=== PATIENT | female | born 1975 | race Two or more races ===

== ENCOUNTER 2020-10-24 17:18 | Outpatient (REF) | payer MEDICARE, MEDICAID, SELFPAY ==
--- NOTE | 2020-10-24 17:26 | XR_ITS ---
EXAMINATION: XR ELBOW, RIGHT CLINICAL INFORMATION: Pain COMPARISON: None TECHNIQUE: AP, lateral, and oblique views of the right elbow. FINDINGS: The bones and soft tissues are normal. No fracture or joint effusion. Alignment is anatomic. Joint spaces are maintained. XR/XR elbow RT 2V IMPRESSION: Normal right elbow.
== END 2020-10-24 17:19 | disposition home or self-care (01) ==
LOC: HO.XRAY 17:18
PROVIDERS: PCP Internal Medicine; Visit Provider Internal Medicine
DX: M25.521 Pain in right elbow (principal)
CPT/HCPCS: 73070

== ENCOUNTER → 2020-11-10 09:28 | Outpatient (BNVA) | payer MEDICARE, MEDICAID, SELFPAY | PROVIDERS: PCP Internal Medicine; Visit Provider Physician Assistant | DX: M77.11 Lateral epicondylitis, right elbow (principal) | CPT/HCPCS: 99202 ==

== ENCOUNTER 2020-12-29 13:48 | Outpatient (REF) | payer MEDICARE, MEDICAID, SELFPAY ==
--- NOTE | ~2020-12-29 | MM_ITS ---
EXAMINATION: MM DIAGNOSTIC DIGITAL BREAST TOMOSYNTHESIS, LEFT CLINICAL INFORMATION: Left breast calcifications The lifetime risk of breast cancer based on the Tyrer-Cuzick Model is 6.8%. COMPARISON: Mammography: 06/27/2020 TECHNIQUE: Digital breast tomosynthesis is performed in both the craniocaudal and mediolateral oblique views along with computer-aided detection (CAD). Synthesized 2D images are generated from the tomosynthesis. Additional spot magnification views in craniocaudal and 90 degree mediolateral views performed. FINDINGS: The breasts are extremely dense, which lowers the sensitivity of mammography (ACR BI-RADS breast composition Category d). There are no new significant masses, abnormal calcifications, or other abnormalities. Two groupings of probably benign calcifications are again seen, one superiorly and one inferiorly within the left breast. Six-month bilateral mammography suggested with magnification views of the left breast at that time. Results are provided to the patient at time of visit by the technologist. MM/MM tomosynthesis diagnostic LT IMPRESSION: There are no significant changes from prior study. ASSESSMENT: BI-RADS 3: Probably Benign RECOMMENDATION: Diagnostic mammography in 6 months. Spot magnification views of the left breast for calcifications. This patient's information was entered into a reminder system with a target due date for their next mammogram.
== END 2020-12-29 13:49 | disposition home or self-care (01) ==
LOC: HO.MAMMO 13:48
PROVIDERS: PCP Internal Medicine; Visit Provider Internal Medicine
DX: R92.1 Mammographic calcification found on diagnostic imaging of breast (principal)
CPT/HCPCS: 77061; 77065

== ENCOUNTER 2021-07-06 13:11 | Outpatient (REF) | payer MEDICARE, MEDICAID, SELFPAY ==
--- NOTE | ~2021-07-06 | MM_ITS ---
EXAMINATION: MM DIAGNOSTIC DIGITAL BREAST TOMOSYNTHESIS, BILATERAL CLINICAL INFORMATION: Due for yearly. Also follow-up probable benign groups left breast calcifications. The lifetime risk of breast cancer based on the Tyrer-Cuzick Model is 7%. COMPARISON: Mammography: 12/29/2020, 06/27/2020 (diagnostic, BI-RADS 3), ultrasound left breast 06/27/2020. TECHNIQUE: Digital breast tomosynthesis is performed in both the craniocaudal and mediolateral oblique views along with computer-aided detection (CAD). Synthesized 2D images are generated from the tomosynthesis. Additional magnification left CC and magnification left LM views are obtained. FINDINGS: The breasts are extremely dense, which lowers the sensitivity of mammography (ACR BI-RADS breast composition Category d). The breast parenchymal pattern is similar to prior studies. There is no developing density or interval mass or architectural abnormality. There is a stable circumscribed nodule posterior outer left breast similar to prior exams. There are a few scattered benign punctate calcifications in the right breast similar to prior studies. The bilateral axilla and skin contours are unremarkable. Left breast calcifications for follow-up appear stable from prior diagnostic studies. These include punctate retroareolar calcifications, benign grouped round calcifications mid 12:00 position, and relatively coarse grouped calcifications with possible layering central lower inner breast. There are also stable punctate calcifications posterior central left breast. Left breast calcifications will be reassessed again in 6 months. Results are provided to the patient at time of visit by the technologist. MM/MM tomosynthesis diagnostic BI IMPRESSION: 1. Left: Stable probable benign groups of calcifications. 2. Right: No mammographic evidence of malignancy. ASSESSMENT: BI-RADS 3: Probably Benign RECOMMENDATION: Diagnostic left mammography in 6 months. This patient's information was entered into a reminder system with a target due date for their next mammogram.
== END 2021-07-06 13:12 | disposition home or self-care (01) ==
LOC: HO.MAMMO 13:11
PROVIDERS: PCP Internal Medicine; Visit Provider Internal Medicine
DX: R92.1 Mammographic calcification found on diagnostic imaging of breast (principal)
CPT/HCPCS: 77062; 77066

== ENCOUNTER 2021-09-27 14:02 | Outpatient (REF) | payer MEDICARE, MEDICAID, SELFPAY ==
[2021-09-28 14:07] LABS: CT PCR NOT DETECTED (Not Detect.); NG PCR NOT DETECTED (Not Detect.)
[2021-09-29 14:53] LABS: BV Int Neg Control Negative (Negative); BV Int Pos Control Positive (Positive)
[2021-10-01 22:07] LABS: HPV mRNA E6/E7 rflx Not Detected (Not Detected)
== END 2021-09-27 14:03 | disposition home or self-care (01) ==
LOC: HO.LAB 14:02
PROVIDERS: PCP Internal Medicine; Visit Provider Advanced Practice Midwife
DX: Z01.419 Encounter for gynecological examination (general) (routine) without abnormal findings (principal); Z11.51 Encounter for screening for human papillomavirus (HPV); Z20.2 Contact with and (suspected) exposure to infections with a predominantly sexual mode of transmission
CPT/HCPCS: 87480; 87491; 87510; 87591; 87624; 87660; 88142

== ENCOUNTER 2021-09-28 11:35 | Outpatient (REF) | payer MEDICARE, MEDICAID, SELFPAY | END 2021-09-28 11:36 | disposition home or self-care (01) | LOC: HO.LNP 11:35 | PROVIDERS: Visit Provider Advanced Practice Midwife | DX: Z13.89 Encounter for screening for other disorder (principal) ==

== ENCOUNTER 2021-10-31 15:05 | Outpatient (REF) | payer MEDICARE, MEDICAID, SELFPAY ==
[2021-10-31 16:02] LABS: COVID-19 Test Positive (Negative)
== END 2021-10-31 15:06 | disposition home or self-care (01) ==
LOC: HO.LAB 15:05
PROVIDERS: Visit Provider Internal Medicine
DX: Z20.822 Contact with and (suspected) exposure to COVID-19 (principal)
CPT/HCPCS: 87635; C9803

== ENCOUNTER 2021-11-14 13:24 | Outpatient (REF) | payer MEDICARE, MEDICAID, SELFPAY ==
[2021-11-14 13:48] LABS: Binax Internal Control QC Valid; Binax Now Covid-19 Ag Negative (Negative)
== END 2021-11-14 13:25 | disposition home or self-care (01) ==
LOC: HO.LAB 13:24
PROVIDERS: Visit Provider Internal Medicine
DX: Z20.822 Contact with and (suspected) exposure to COVID-19 (principal)
CPT/HCPCS: C9803

== ENCOUNTER 2021-12-24 10:09 | Outpatient (REF) | payer MEDICARE, MEDICAID, SELFPAY ==
[2021-12-24 10:58] LABS: Hematocrit 36.5 % (37.0-47.0); Hemoglobin 11.9 g/dl (12.0-16.0); Mean Corpuscular HGB Conc 32.6 g/dl (31.0-35.0); Mean Platelet Volume 12.4 fL (9.4-12.3); Platelet Count 327 X10*3/uL (160-400); Red Cell Distribution Width 12.7 % (11.0-16.0); White Blood Count 5.6 X10*3/uL (4.8-10.8)
[2021-12-24 11:25] LABS: Anion Gap 11 (12-20); Blood Urea Nitrogen 8 mg/dL (9-16); Calcium 9.6 mg/dL (8.4-10.2); Carbon Dioxide 28 mmol/L (22-29); Chloride 105 mmol/L (96-108); Cholesterol 179 mg/dL; Estimated Glomerular Filt Rate > 60; Glucose Fasting 92 mg/dL (60-99); HDL Cholesterol 44 mg/dL; LDL Cholesterol Calculated 112 mg/dl; Potassium 4.7 mmol/L (3.3-5.1); Sodium 139 mmol/L (135-145); Triglycerides 116 mg/dL
== END 2021-12-24 10:10 | disposition home or self-care (01) ==
LOC: HO.LAB 10:09
PROVIDERS: Absent Provider Internal Medicine; PCP Internal Medicine; Visit Provider Nurse Practitioner Family
DX: Z00.00 Encounter for general adult medical examination without abnormal findings (principal); Z13.1 Encounter for screening for diabetes mellitus; E78.00 Pure hypercholesterolemia, unspecified
CPT/HCPCS: 36415; 80048; 80061; 85027

== ENCOUNTER 2022-01-03 12:51 | Outpatient (REF) | payer MEDICARE, MEDICAID, SELFPAY ==
--- NOTE | ~2022-01-03 | MM_ITS ---
EXAMINATION: MM DIAGNOSTIC DIGITAL BREAST TOMOSYNTHESIS, LEFT CLINICAL INFORMATION: Follow-up probable benign groups of calcifications left breast. No known family history breast cancer. The lifetime risk of breast cancer based on the Tyrer-Cuzick Model is 7%. COMPARISON: Mammography: 07/06/2021, 12/29/2020, 06/27/2020 (diagnostic, BI-RADS 3). TECHNIQUE: Digital breast tomosynthesis is performed in both the craniocaudal and mediolateral oblique views along with computer-aided detection (CAD). Synthesized 2D images are generated from the tomosynthesis. Additional magnification CC and magnification ML x2 views are obtained. FINDINGS: The breasts are heterogeneously dense, which may obscure small masses (ACR BI-RADS breast composition Category c). Breast tissue composition borders on extremely dense. The parenchymal pattern is similar to prior studies. There is a intramammary node left breast upper outer quadrant similar to prior studies. The calcifications for follow-up are stable from prior diagnostic exams. There are no increasing calcifications or interval pleomorphic types or ductal distribution. Calcifications will be reassessed again at next bilateral annual mammography in 6 months to conclude long-term surveillance. Results are provided to the patient at time of visit by the technologist. MM/MM tomosynthesis diagnostic LT IMPRESSION: There are no significant changes from prior exams. Left breast calcifications for follow-up stable. ASSESSMENT: BI-RADS 3: Probably Benign RECOMMENDATION: Diagnostic mammography at time of annual bilateral exam, due in 6 months. This patient's information was entered into a reminder system with a target due date for their next mammogram.
== END 2022-01-03 12:52 | disposition home or self-care (01) ==
LOC: HO.MAMMO 12:51
PROVIDERS: PCP Internal Medicine; Visit Provider Internal Medicine
DX: R92.1 Mammographic calcification found on diagnostic imaging of breast (principal)
CPT/HCPCS: 77061; 77065

== ENCOUNTER → 2022-05-10 13:13 | Outpatient (REF) | payer MEDICARE, MEDICAID, SELFPAY ==
--- NOTE | 2022-05-10 13:15 | ECG_ITS ---
Hook-up date: 2022-05-10 12:37:00 Duration: 47:59:00 Test Indications: PALPITATIONS Medications: [id number] QRS complexes 5 Ventricular ectopics which represent <1 % of total QRS comp. 62 Supraventricular ectopics which represent <1 % of total QRS comp. * Paced QRS complexs which represent % of total QRS comp. VENTRICULAR ECTOPY 5 Isolated 0 Bigeminal Cycles 0 Couplets 0 Runs 0 Beats in Runs * Beats LONGEST at * BPM at :: -- * Beats FASTEST at * BPM at :: -- SUPRAVENTRICULAR ECTOPY 45 Isolated 4 Couplets 2 Runs 9 Beats in Runs 6 Beats LONGEST at 80 BPM at 21:30:50 2022-05-11 3 Beats FASTEST at 98 BPM at 06:10:18 2022-05-11 HEART RATES 43 MIN at 01:05:19 2022-05-11 69 AVG 123 MAX at 10:48:27 2022-05-11 LONGEST RR 1.5120 secs at 01:05:19 2022-05-11 S-T LEVELS Channel 1 - 128 mm at 12:37:00 2022-05-10 - 128 mm at 12:37:00 2022-05-10 Channel 2 - 128 mm at 12:37:00 2022-05-10 - 128 mm at 12:37:00 2022-05-10 Channel 3 - 128 mm at 03:15:61 -- - 128 mm at 03:15:61 Basic rhythm Normal sinus rhythm No long pause or profound bradycardia Rare Premature atrial complexes Patient reported symptoms correlated with NSR Referred By: Dinorah Hernandez Overread By: CLEMENTE DE LEON MD
== END | disposition home or self-care (01) ==
LOC: HO.CARD 13:13
PROVIDERS: PCP Internal Medicine; Visit Provider Internal Medicine
DX: R00.2 Palpitations (principal)
CPT/HCPCS: 93225; 93226

== ENCOUNTER → 2022-06-18 10:39 | Outpatient (BNVA) | payer MEDICARE, MEDICAID, SELFPAY | PROVIDERS: PCP Internal Medicine; Referring Provider Internal Medicine; Visit Provider Internal Medicine | DX: R00.2 Palpitations (principal) | CPT/HCPCS: 93005 ==

== ENCOUNTER → 2022-07-11 13:48 | Outpatient (REF) | payer MEDICARE, MEDICAID, SELFPAY ==
--- NOTE | 2022-07-11 13:53 | CA_ITS ---
Transthoracic Echocardiogram Patient (Last, First, Middle): Esme Velasquez, Gender: Female Date of : 1975 Age: 47 Procedure Date: 07/11/2022 Procedure Type: Transthoracic Echocardiogram Location: OP Height: 157.48 cm Weight: 63.5 kg BSA: 1.64 m2 Heart Rate: bpm BP: 110 / 70 mmHg Stone Finisher: TO Referring MD: Bib Maya MD Symptoms: R00.2 - Palpitations Study Quality: Adequate ECG Rhythm: Sinus Conclusions: - The left ventricular systolic function is normal. The calculated ejection fraction is 58% by biplane method. - No obvious valvular pathology seen on this study. Findings Left Ventricle Normal left ventricular cavity size. There is normal left ventricular wall thickness. The left ventricular systolic function is normal. The calculated ejection fraction is 58% by biplane method. There is no evidence of regional wall motion abnormalities. Diastolic function is normal for age. Right Ventricle Normal right ventricular cavity size and systolic function. Atria Both atria are normal in size. Aortic Valve There is a normal trileaflet aortic valve. There is no aortic valve stenosis. There is no aortic valve regurgitation. Mitral Valve The mitral valve appears normal. There is no mitral valve regurgitation. There is no mitral valve stenosis. Pulmonic Valve The pulmonic valve is likely normal. Tricuspid Valve There is trace tricuspid valve regurgitation. There is no evidence of pulmonary hypertension. Great Vessels The asc aorta is normal in size. Venous The inferior vena cava is normal in size and collapses greater than 50% with inspiration. Pericardium/Pleural There is no evidence of pericardial effusion. Prior Study Comparison No prior study available for comparison. Recommendations, Care & Conclusions No obvious valvular pathology seen on this study. Measurements 2D Linear Measurements IVSd: 0.90 0.6-0.9/0.6-1.0 cm LVIDd: 4.30 3.9-5.3/4.2-5.9 cm LVIDd Index: 2.62 2.4-3.2/2.2-3.1 cm/m2 LVIDs: 2.61 2.0-3.6 cm LVPWd: 0.69 0.7-1.1 cm LA Diam: 3.30 2.7-3.8/3.0-4.0 cm LAIDs Index: 2.01 1.5-2.3 cm/m2 LV Mass: 130.04 67-162/88-224 g LV Mass Index: 79.29 43-95/49-115 g/m2 LVOT Diam: 1.90 3.0+(-)1.3 cm 2D Systolic Function EF 4C: 55.90 >55% EF 2C: 59.20 >55% EF BiP: 58.10 >55% Mitral Valve MV Pk E: 0.61 MV PK A: 0.52 MV Decel Time: 228.00 E/A: 1.20 E'Lateral: 10.90 E'Medial: 8.59 E/E' Med: 7.10 E/E' Lat: 5.60 PHT: 67.00 MVA PHT: 3.28 Decel [place]: 2.69 Aortic Valve AoV Pk [place]: 1.16 AoV Mn [place]: 0.76 AoV VTI: 0.22 AoV Pk Grad: 5.00 Aov Mn Grad: 3.00 KARI Cont.VTI: 2.21 LVOT LVOT Pk [place]: 0.89 LVOT Mn [place]: 0.62 LVOT VTI: 0.17 LVOT Pk Grad: 3.00 LVOT Mn Grad: 2.00 LVOT Diam: 1.90 LVOT Area: 2.84 Diastolic Function MV Pk E: 0.61 MV Pk A: 0.52 E/A: 1.20 E'Medial: 8.59 E/E' Med: 7.10 E' Laterial: 10.90 E/E' Lat: 5.60 Right Ventricle TAPSE (mm): 20.00 TVS' [place]: 10.60 Tricuspid Valve RA Press: 3.00 Great Vessels Aorta Sinus of Valsalva: 2.68 2.0-3.5 cm Ao Asc: 2.60 2.1-3.4 cm Updated in Other Vendor System with Status of Final Bib Maya MD electronically signed on 07/12/2022 9:11:32 AM with status of Final
--- NOTE | 2022-07-11 13:53 | HM_ITS ---
Conclusion: 1. Patient was monitored for total period of 2 days and 23 hours 2. Baseline was normal sinus rhythm with average heart of 76 beats per minute 3. No significant bradycardia or pauses noted 4. Very rare ectopy noted 5. No patient reported events MTDD
== END ==
LOC: HO.CARD 13:48
PROVIDERS: PCP Internal Medicine; Visit Provider Internal Medicine
DX: R00.2 Palpitations (principal)
CPT/HCPCS: 93242; 93306

== ENCOUNTER 2022-07-16 12:58 | Outpatient (REF) | payer MEDICARE, MEDICAID, SELFPAY ==
--- NOTE | ~2022-07-16 | MM_ITS ---
EXAMINATION: MM DIAGNOSTIC DIGITAL BREAST TOMOSYNTHESIS, BILATERAL CLINICAL INFORMATION: Due for yearly. Also follow-up probable benign groups of calcifications left breast. No known family history breast cancer. TC score 7%. COMPARISON: Mammography: 01/03/2022, 07/06/2021, 12/29/2020, 06/27/2020 (diagnostic, BI-RADS 3). TECHNIQUE: Digital breast tomosynthesis is performed in both the craniocaudal and mediolateral oblique views along with computer-aided detection (CAD). Synthesized 2D images are generated from the tomosynthesis. Additional magnification views left breast are obtained in the CC and ML x2 projections. FINDINGS: The breasts are heterogeneously dense, which may obscure small masses (ACR BI-RADS breast composition Category c). Breast tissue composition borders on extremely dense. The parenchymal pattern is similar to prior studies and there is no interval mass or architectural abnormality or developing density. Right breast shows no abnormal calcifications. The bilateral axilla and skin contours are unremarkable. Left breast calcifications for follow-up central lower, mid 12:00, and superior subareolar are similar to prior diagnostic studies. There are no increasing calcifications, interval pleomorphic types, or ductal distribution. This concludes long-term surveillance in the calcifications are now considered to be benign. Results are provided to the patient at time of visit by the technologist. MM/MM tomosynthesis diagnostic BI IMPRESSION: -No significant changes from prior studies. -The left breast calcifications for follow-up are stable from prior diagnostic exams and now considered to be benign. ASSESSMENT: BI-RADS 2: Benign RECOMMENDATION: Routine annual mammography screening. This patient's information was entered into a reminder system with a target due date for their next mammogram.
== END 2022-07-16 12:59 | disposition home or self-care (01) ==
LOC: HO.MAMMO 12:58
PROVIDERS: PCP Internal Medicine; Visit Provider Internal Medicine
DX: R92.1 Mammographic calcification found on diagnostic imaging of breast (principal)
CPT/HCPCS: 77062; 77066

== ENCOUNTER 2022-09-10 08:37 | Outpatient (REF) | payer MEDICARE, MEDICAID, SELFPAY ==
[2022-09-10 09:13] LABS: Hematocrit 35.2 % (37.0-47.0); Hemoglobin 11.7 g/dl (12.0-16.0); Mean Corpuscular HGB Conc 33.2 g/dl (31.0-35.0); Mean Corpuscular Hemoglobin 29.2 pg (27.0-33.0); Mean Corpuscular Volume 87.8 fL (80.0-98.0); Mean Platelet Volume 12.9 fL (9.4-12.3); Platelet Count 278 X10*3/uL (160-400); Red Blood Count 4.01 X10*6/uL (4.20-5.50); Red Cell Distribution Width 12.9 % (11.0-16.0); White Blood Count 5.7 X10*3/uL (4.8-10.8)
[2022-09-10 09:16] LABS: INTERNATIONAL NORM RATIO 1.2 (0.9-1.1); Prothrombin Time 13.5 SEC (10.0-13.1)
[2022-09-10 09:18] LABS: Partial Thromboplastin Time 35.6 SEC (26.0-36.4)
[2022-09-10 10:11] LABS: Alanine Aminotransferase 7 U/L (0-31); Albumin Level 4.1 g/dL (3.5-5.0); Alkaline Phosphatase 59 U/L (39-117); Anion Gap 13 (12-20); Aspartate Amino Transferase 15 U/L (5-31); Bilirubin Total 0.4 mg/dL (0.0-1.0); Blood Urea Nitrogen 11 mg/dL (9-16); Carbon Dioxide 23 mmol/L (22-29); Chloride 107 mmol/L (96-108); Estimated Glomerular Filt Rate > 60; Glucose Fasting 107 mg/dL (60-99); HCG Quantitative < 2 mIU/mL; Potassium 4.5 mmol/L (3.3-5.1); Sodium 138 mmol/L (135-145); Thyroid Stimulating Hormone 1.38 uIU/mL (0.32-4.0); Total Protein 6.9 g/dL (6.5-8.0)
[2022-09-10 10:47] LABS: HIV AB/AG Nonreactive (Nonreactive); HIV Num 1 0.06 S/CO (0.00-0.99)
== END 2022-09-10 08:38 | disposition home or self-care (01) ==
LOC: HO.LAB 08:37
PROVIDERS: PCP Internal Medicine; Visit Provider Internal Medicine
DX: Z01.818 Encounter for other preprocedural examination (principal); Z11.4 Encounter for screening for human immunodeficiency virus [HIV]
CPT/HCPCS: 36415; 80053; 84443; 84702; 85027; 85610; 85730; 87389

== ENCOUNTER 2022-12-09 14:58 | Outpatient (REF) | payer OTHER, SELFPAY ==
[2022-12-09 15:09] LABS: MANUAL DIFF FLAG NO
[2022-12-09 15:33] LABS: Basophils Percent Auto 0.5 % (0-2); Eosinophils Absolute Auto 0.1 X10*3/uL (0.0-0.4); Eosinophils Percent Auto 1.2 % (0-4); Hematocrit 38.9 % (37.0-47.0); Hemoglobin 12.7 g/dl (12.0-16.0); Imm Gran Abs Auto 0.01 X10*3/uL (0.00-0.03); Imm Gran Pct Auto 0.1 % (0.0-0.4); Lymphocytes Absolute Auto 2.6 X10*3/uL (1.2-4.9); Lymphocytes Percent Auto 34.6 % (20-40); Mean Corpuscular HGB Conc 32.6 g/dl (31.0-35.0); Mean Corpuscular Hemoglobin 28.3 pg (27.0-33.0); Mean Corpuscular Volume 86.8 fL (80.0-98.0); Mean Platelet Volume 12.6 fL (9.4-12.3); Monocytes Absolute Auto 0.5 X10*3/uL (0.1-1.2); Monocytes Percent Auto 6.7 % (2-11); Neutrophils Absolute Auto 4.4 x10*3/uL (2.0-8.3); Neutrophils Percent Auto 56.9 % (45-73); Platelet Count 361 X10*3/uL (160-400); Red Blood Count 4.48 X10*6/uL (4.20-5.50); Red Cell Distribution Width 12.8 % (11.0-16.0); White Blood Count 7.6 X10*3/uL (4.8-10.8)
[2022-12-09 16:12] LABS: Alanine Aminotransferase 23 U/L (0-31); Albumin Level 4.4 g/dL (3.5-5.0); Alkaline Phosphatase 84 U/L (39-117); Anion Gap 13 (12-20); Aspartate Amino Transferase 26 U/L (5-31); Bilirubin Total 0.5 mg/dL (0.0-1.0); Blood Urea Nitrogen 8 mg/dL (9-16); Calcium 9.6 mg/dL (8.4-10.2); Carbon Dioxide 26 mmol/L (22-29); Chloride 103 mmol/L (96-108); Cholesterol 228 mg/dL; Estimated Glomerular Filt Rate > 60; Glucose Fasting 95 mg/dL (60-99); HDL Cholesterol 59 mg/dL; Iron 74 mcg/dL (30-160); LDL Cholesterol Calculated 149 mg/dl; Percent Iron Saturation 20 % (15-50); Potassium 4.4 mmol/L (3.3-5.1); Sodium 138 mmol/L (135-145); Total Iron Binding Capacity 362 mcg/dL (228-428); Total Protein 7.3 g/dL (6.5-8.0); Triglycerides 100 mg/dL; Unsaturated Iron Binding 288 ug/dL
[2022-12-09 16:27] LABS: Thyroid Stimulating Hormone 1.53 uIU/mL (0.32-4.0)
== END 2022-12-09 14:59 | disposition home or self-care (01) ==
LOC: HO.LAB 14:58
PROVIDERS: PCP Internal Medicine; Visit Provider Internal Medicine
DX: Z00.00 Encounter for general adult medical examination without abnormal findings (principal); R00.2 Palpitations; D64.9 Anemia, unspecified
CPT/HCPCS: 36415; 80053; 80061; 83540; 84443; 85025

== ENCOUNTER 2022-12-26 12:46 | Outpatient (REF) | payer OTHER, SELFPAY ==
--- NOTE | ~2022-12-26 | US_ITS ---
EXAMINATION: US SOFT TISSUE NECK CLINICAL INFORMATION: Enlarged lymph nodes. COMPARISON: None TECHNIQUE: Ultrasound of the neck soft tissues is performed with high- frequency deras-scale imaging and color Doppler. Particular attention is directed the left submandibular region and inferior to the left ear. FINDINGS: The cutaneous, subcutaneous, muscular and fascial planes are unremarkable. Within the left submandibular region, corresponding with a palpable finding, a 1.0 x 0.5 x 1.5 cm reniform lymph node is seen. Inferior to the left ear, corresponding with a palpable finding, a 0.6 x 0.3 x 0.4 cm reniform lymph node is seen. These lymph nodes both show good corticomedullary differentiation, vascular amairani and no focal cortical thickening. US/US soft tiss head and/or neck IMPRESSION: 2 upper left cervical lymph nodes are noted, as detailed. These correspond with palpable findings described. One of these within the left submandibular region is enlarged. Neither lymph node shows altered corticomedullary differentiation or focal cortical thickening. These are nonspecific and should be managed on a clinical basis. If of continued clinical concern, consider short-term follow-up ultrasound imaging in 3-6 months to ensure stability/regression.
== END 2022-12-26 12:47 | disposition home or self-care (01) ==
LOC: HO.US 12:46
PROVIDERS: PCP Internal Medicine; Visit Provider Internal Medicine
DX: R59.0 Localized enlarged lymph nodes (principal)
CPT/HCPCS: 76536

== ENCOUNTER 2023-01-20 13:57 | Outpatient (REF) | payer OTHER, SELFPAY ==
[2023-01-21 01:03] LABS: CT PCR NOT DETECTED (Not Detect.); NG PCR NOT DETECTED (Not Detect.)
[2023-01-21 09:28] LABS: BV Int Neg Control Negative (Negative); BV Int Pos Control Positive (Positive)
== END 2023-01-20 13:58 | disposition home or self-care (01) ==
LOC: HO.LNP 13:57
PROVIDERS: PCP Internal Medicine; Visit Provider Advanced Practice Midwife
DX: Z01.419 Encounter for gynecological examination (general) (routine) without abnormal findings (principal); R92.1 Mammographic calcification found on diagnostic imaging of breast; Z20.2 Contact with and (suspected) exposure to infections with a predominantly sexual mode of transmission; Z79.899 Other long term (current) drug therapy
CPT/HCPCS: 0353U; 87480; 87510; 87660

== ENCOUNTER → 2023-01-31 15:38 | Outpatient (BNVA) | payer OTHER, SELFPAY | PROVIDERS: PCP Internal Medicine; Visit Provider Internal Medicine | DX: Z13.89 Encounter for screening for other disorder (principal) ==

== ENCOUNTER 2023-05-13 15:36 | Outpatient (REF) | payer MEDICARE, SELFPAY ==
--- NOTE | ~2023-05-13 | US_ITS ---
EXAMINATION: US SOFT TISSUE HEAD/NECK CLINICAL INFORMATION: Localized enlarged lymph nodes. COMPARISON: Ultrasound soft tissue neck 12/26/2022. TECHNIQUE: Linear transducer grayscale and color Doppler examination of the left submandibular and parotid area. FINDINGS: Targeted ultrasound images were obtained by the learning development specialist of the areas of concern as indicated by the patient in the region of the left submandibular and parotid gland to evaluate previously seen nodes. Radiologist was not in attendance. Images were later provided for interpretation. A 1.0 x 0.5 x 1.2 cm reniform lymph node with echogenic hilum in the left submandibular region previously measured 1.0 x 0.5 x 1.5 cm. A 0.5 x 0.2 x 0.3 cm reniform lymph node with echogenic hilum inferior to the left ear previously measured 0.6 x 0.3 x 0.4 cm. Both lymph nodes again demonstrate good corticomedullary differentiation. US/US soft tiss head and/or neck IMPRESSION: Two (2) upper left cervical nodes are redemonstrated as detailed above. Decisions regarding further management should be based on the clinical exam. Recommend follow-up ultrasound in 3-6 months.
== END 2023-05-13 15:37 | disposition home or self-care (01) ==
LOC: HO.US 15:36
PROVIDERS: PCP Internal Medicine; Visit Provider Internal Medicine
DX: R59.0 Localized enlarged lymph nodes (principal)
CPT/HCPCS: 76536

== ENCOUNTER 2023-05-13 16:25 | Outpatient (AMB) | payer MEDICARE, SELFPAY ==
--- NOTE | 2023-05-13 16:56 | AM.OFFWIN_ITS ---
Intake Vital Signs 05/13/23 16:57 Height 5 ft 2 in BP 98/62 Blood Pressure Location Rt brachial Position Sitting Pulse 81 Pulse Source Pulse Oximeter Pulse Oximetry (%) 100 Oxygen Delivery Method Room Air Intake Visit Reasons: EST/lower stomach lump Intake Note: pt had lipo in Dec and she had a lump in the spot where the surgery was done and is not flat pt has some pain pt tried to have it messaged out Patient Tobacco Use Status: Never used Tobacco Allergies tramadol Adverse Reaction (Intermediate, Verified 05/21/23 14:12) Chest Pain Medication List - Last Reconciled 05/21/23 by Avinash Le MD brimonidine-timolol 0.2-0.5 % (Combigan) 1 drp ophthalmic (eye) BID bupropion HCl 100 mg PO BID dorzolamide 2% 1 drp ophthalmic (eye) BID escitalopram oxalate 20 mg PO DAILY Grab bar As directed [handheld shower As directed] netarsudil-latanoprost 0.02-0.005 % (Rocklatan) 1 drp ophthalmic (eye) QPM peg 3350-electrolytes 236-22.74-6.74 -5.86 gram (Golytely) 240 mL PO Q10M prednisolone acetate 1% 1 drp ophthalmic (eye) BID Shower Chair with sides trazodone 50 mg PO BEDTIME PRN HPI HPI Comments History of Present Illness Details 48-year-old female presents to the office for a sick visit. Her hus band is translating. Patient underwent liposuction surgery in [place] few months ago. She feels there is a lump in the suprapubic area. There is no pain or discomfort associated with it. Patient would like to have the area examined. [facility] Medical History Breast calcifications on mammogram MIGUEL (generalized anxiety disorder) Insomnia Lymphadenopathy Mild recurrent major depression Right elbow pain Skin lesion Surgical History H/O right breast biopsy History of bilateral tubal ligation History of cosmetic surgery History of eye surgery History of keratoplasty History of vitrectomy Hx of colonoscopy Family History Father Prostate cancer Colon polyp Mother Hypertension Mental health disorder Colon polyp Daughter No problems noted. Social History Housing: House Alcohol intake: never Patient Tobacco Use Status: Never used Tobacco e-Cigarette/Vaping Use: Never Used Second Hand Smoke Exposure: No service: No Current occupational status: unemployed Current occupation: Right Handed Cognitive needs: No Hearing needs: No Vision needs: Yes (Glasses) Female Reproductive History Menstrual Age of Menarche: 12 Physical Exam Vital Signs: Last Vital Signs Pulse 81 05/13/23 16:57 BP 98/62 05/13/23 16:57 Pulse Ox 100 05/13/23 16:57 Oxygen Delivery Method Room Air 05/13/23 16:57 Const General: cooperative and healthy appearing Nutritional Appearance: well nourished Orientation/consciousness: patient oriented x3 Limitations: no limitations HEENT Head: Yes normal to inspection Eyes General: appearance normal, both eyes and all related structures Neck Neck: Yes normal visual inspection Chest Chest palpation & inspection: normal palpation of entire chest wall Resp Effort & Inspection: normal respiratory effort GI Other: Abdomen: Lower: No visible lump. There is minimal stay diastasis of the recti sheath. No tenderness. Neuro General: patient oriented x3 Assessment & Plan Assessment & Plan (1) Diastasis recti: Code(s): M62.08 - Separation of muscle (nontraumatic), other site Plan: Reassurance. No intervention needed. Coding Level of Care Code Est Pt Level 3 (39075) Diagnoses Diastasis recti M62.08
[2023-05-13 16:57] VITALS: BP 98/62; PULSE 81; O2SAT 100
== END 2023-05-13 17:08 | disposition home or self-care (01) ==
LOC: HO.HMGWI 16:25
PROVIDERS: PCP Internal Medicine; Visit Provider Internal Medicine
DX: M62.08 Separation of muscle (nontraumatic), other site (principal)
CPT/HCPCS: 99213

== ENCOUNTER 2023-06-09 09:51 | Outpatient (AMB) | payer MEDICARE, SELFPAY ==
--- NOTE | 2023-06-09 09:57 | A.OFFVIS_ITS ---
Intake Vital Signs 06/09/23 10:06 Height 5 ft 2 in Weight 136 lb BMI 24.9 BP 112/57 L Blood Pressure Location Rt brachial Position Sitting Pulse 68 Intake Visit Reasons: Generalized enlarged lymph nodes Intake Note: This patient presents for an assessment for generalized general lymph nodes. Patient c/o; reports feeling lump on left posterior ear and left side of jaw line, denies pain, denies dysphagia. Recovery Specialist Required: Yes Recovery Specialist Language: Malian Information Interpreted: non-clinical & clinical Accompanied by: Self / Same As Patient Allergies tramadol Adverse Reaction (Intermediate, Verified 06/09/23 10:06) Chest Pain HPI HPI Comments History of Present Illness Details Patient presents for follow-up surveillance of left cervical adenopathy. She has had these lymph nodes were several months time. Patient has had 2 ultrasounds of the head neck to evaluate these which have benign architecture. Recommendation of most recent ultrasound is for six-month follow- up. Patient denies any fever, chills, night sweats, weight loss. She has no mass or adenopathy elsewhere. Chart was reviewed patient evaluated. [facility], [facility] Medical History Breast calcifications on mammogram MIGUEL (generalized anxiety disorder) Insomnia Lymphadenopathy Mild recurrent major depression Right elbow pain Skin lesion Surgical History H/O right breast biopsy History of bilateral tubal ligation History of cosmetic surgery History of eye surgery History of keratoplasty History of vitrectomy Hx of colonoscopy Family History Father Prostate cancer Colon polyp Mother Hypertension Mental health disorder Colon polyp Daughter No problems noted. Social History Housing: House Alcohol intake: never Patient Tobacco Use Status: Never used Tobacco e-Cigarette/Vaping Use: Never Used Second Hand Smoke Exposure: No service: No Current occupational status: unemployed Current occupation: Right Handed Cognitive needs: No Hearing needs: No Vision needs: Yes (Glasses) Female Reproductive History Menstrual Age of Menarche: 12 Physical Exam Vital Signs: Last Vital Signs Pulse 68 06/09/23 10:06 BP 112/57 L 06/09/23 10:06 BMI result Body Mass Index 24.9 HEENT Other: Patient has a small apex left cervical lymph node measuring proximal 1/2 cm in size and the 2nd 1 in the left submandibular area. No contralateral cervical, periclavicular, axillary or groin adenopathy appreciated. Assessment & Plan Assessment & Plan (1) Head and neck lymphadenopathy: Code(s): R59.1 - Generalized enlarged lymph nodes Plan: Current plan is continue conservative therapy. Patient will hav a follow-up sonogram of cervical area in 6 months time and will see me after that or p.r.n.. All questions were answered. Orders: Orders US soft tiss head and/or neck Today R59.1 - Generalized enlarged lymph nodes Coding Level of Care Code New Pt Level 3 (92152) Diagnoses Head and neck lymphadenopathy R59.1
[2023-06-09 10:06] VITALS: BP 112/57; PULSE 68; BMI 24.9
== END 2023-06-09 10:13 | disposition home or self-care (01) ==
PROVIDERS: PCP Internal Medicine; Referring Provider Internal Medicine; Visit Provider Surgery
DX: R59.1 Generalized enlarged lymph nodes (principal)
CPT/HCPCS: 99203

== ENCOUNTER → 2023-06-09 09:51 | Outpatient (BNVA) | payer MEDICARE, SELFPAY | PROVIDERS: PCP Internal Medicine; Referring Provider Internal Medicine; Visit Provider Surgery | DX: R59.1 Generalized enlarged lymph nodes (principal) | CPT/HCPCS: 99202 ==

== ENCOUNTER 2023-07-22 09:20 | Outpatient (REF) | payer OTHER, SELFPAY ==
--- NOTE | ~2023-07-22 | MM_ITS ---
EXAMINATION: MM SCREENING DIGITAL BREAST TOMOSYNTHESIS, BILATERAL CLINICAL INFORMATION: Screening. Asymptomatic. COMPARISON: Mammography: This study is compared with prior exams dating back to 2019. TECHNIQUE: Digital breast tomosynthesis is performed in both the craniocaudal and mediolateral oblique views along with computer-aided detection (CAD). Synthesized 2D images are generated from the tomosynthesis. FINDINGS: The breasts are extremely dense, which lowers the sensitivity of mammography (ACR BI-RADS breast composition Category d). There are no significant masses, abnormal calcifications, or other abnormalities. MM/MM tomosynthesis screening BI IMPRESSION: No mammographic evidence of malignancy. ASSESSMENT: BI-RADS BI-RADS 1 - Negative RECOMMENDATION: Routine annual mammography screening. 1 year F/U This examination should not preclude the clinical evaluation of a suspicious palpable abnormality. This patient's information was entered into a reminder system with a target due date for their next mammogram.
== END 2023-07-22 09:21 | disposition home or self-care (01) ==
LOC: HO.MAMMO 09:20
PROVIDERS: PCP Internal Medicine; Visit Provider Internal Medicine
DX: Z12.31 Encounter for screening mammogram for malignant neoplasm of breast (principal)
CPT/HCPCS: 77063; 77067

== ENCOUNTER → 2023-07-22 09:30 | Outpatient (BNV) | payer OTHER, SELFPAY | PROVIDERS: PCP Internal Medicine; Visit Provider Radiology Diagnostic Radiology | DX: Z12.31 Encounter for screening mammogram for malignant neoplasm of breast (principal) | CPT/HCPCS: 77063; 77067 ==

== ENCOUNTER 2023-08-11 08:02 | Outpatient (AMB) | payer OTHER, SELFPAY ==
[2023-08-11 08:07] VITALS: BP 112/52; PULSE 64; O2SAT 99; BMI 24.7
--- NOTE | 2023-08-11 08:07 | A.OFFPC_ITS ---
Vital Signs 3 08/11/23 08:07 Height 5 ft 2 in Weight 135 lb BMI 24.7 BP 112/52 L Blood Pressure Location Lt brachial Position Sitting Pulse 64 Pulse Source Pulse Oximeter Pulse Oximetry (%) 99 Oxygen Delivery Method Room Air Intake Visit Reasons: Lump on the bottom of belly button Allergies tramadol Adverse Reaction (Intermediate, Verified 08/11/23 08:13) Chest Pain Medication List - Last Reconciled 08/11/23 by Francisco Morris PA-C brimonidine-timolol 0.2-0.5 % (Combigan) 1 drp ophthalmic (eye) BID bupropion HCl 100 mg PO BID dorzolamide 2% 1 drp ophthalmic (eye) BID escitalopram oxalate 20 mg PO DAILY Grab bar As directed [handheld shower As directed] lorazepam 1 mg PO DAILY PRN netarsudil-latanoprost 0.02-0.005 % (Rocklatan) 1 drp ophthalmic (eye) QPM peg 3350-electrolytes 236-22.74-6.74 -5.86 gram (Golytely) 240 mL PO Q10M prednisolone acetate 1% 1 drp ophthalmic (eye) BID Shower Chair with sides trazodone 50 mg PO BEDTIME PRN Tobacco use date assessed: 12/09/22 Dental Screening Dental Screen Date: 08/11/23 Did you have a dental visit in the last 12 months?: Yes Did you have a dental problem in the last 6 months where you did not have access to dental care?: No Was dental information given to patient?: Patient has dentist HPI Lump on the bottom of belly button 2 HPI0 Details Patient is a 48-year-old female here today for problem visit. Patient is Pashto-speaking only thus used a remote motor vehicle parts interpreter. This is the 1st time I am meeting this 48-year-old female with a past medical history significant for depression. She reports she has noted a lump just underneath her umbilicus over the last 2 months. She reports there has been more pain in the area concern and has felt a palpable lump getting bigger. She has been urinating and defecating normally. [facility] Medical History Lymphadenopathy Breast calcifications on mammogram MIGUEL (generalized anxiety disorder) Insomnia Mild recurrent major depression Skin lesion Right elbow pain Surgical History History of vitrectomy Corneal transplant status History of eye surgery H/O right breast biopsy Hx of colonoscopy History of cosmetic surgery History of bilateral tubal ligation History of keratoplasty History of eye surgery H/O right breast biopsy History of vitrectomy Family History Father Prostate cancer Colon polyp Mother Hypertension Mental health disorder Colon polyp Daughter No problems noted. Father Prostate cancer Mother Hypertension Social History Housing: House Alcohol intake: never Patient Tobacco Use Status: Never used Tobacco e-Cigarette/Vaping Use: Never Used Second Hand Smoke Exposure: No service: No Current occupational status: unemployed Current occupation: Right Handed Cognitive needs: No Hearing needs: No Vision needs: Yes (Glasses) Female Reproductive History Menstrual Age of Menarche: 12 Questionnaire PHQ-9 Over the last 2 weeks, how often have you been bothered by any of the following problems? 1. Little interest or pleasure in doing things: not at all 2. Feeling down, depressed, or hopeless: not at all 3. Trouble falling or staying asleep, or sleeping too much: not at all 4. Feeling tired or having little energy: not at all 5. Poor appetite or overeating: not at all 6. Feeling bad about yourself - or that you are a failure or have let yourself or your family down: not at all 7. Trouble concentrating on things, such as reading the newspaper or watching television: not at all 8. Moving or speaking so slowly that other people could have noticed. Or the opposite - being so fidgety or restless that you have been moving around a lot more than usual: not at all 9. Thoughts that you would be better off or of hurting yourself in some way: not at all Total score: 0 Depression Screening Interpretation: Negative Depression Screening Done: Yes 62445 - PHQ-9 Billing: Yes Source: Developed by Drs. Jesus Isbell, Lolly Waters, Fernando Carter and colleagues, with an educational anel from [employer]. Thrive Questionnaire Date Thrive assessed: 12/09/22 AUDIT C Alcohol Use Questionnaire (AUDIT-C) 1. How often do you have a drink containing alcohol?: Never Total Score: 0 MIGUEL-7 AMB Questionnaire MIGUEL-7 Date MIGUEL - 7 assessed: 12/09/22 Source: Developed by Drs. Jesus Isbell, Lolly Waters, Fernando Carter and colleagues, with an educational anel from [employer]. Review of Systems Const Denies headache(s) Eyes Denies loss of vision ENT Denies vertigo, Denies dizziness, Denies headache(s) and Denies sore throat Card Denies chest pain, Denies leg edema and Denies lightheadedness Resp Denies cough, Denies hemoptysis and Denies wheezing GI Denies abdominal pain, Denies melena, Denies constipation, Denies diarrhea and Denies vomiting Denies urinary frequency, Denies dysuria and Denies urinary urgency Musc Denies arthralgias, Denies joint swelling, Denies numbness and Denies tingling Neuro Denies Abnormal speech present, Denies behavioral changes, Denies vertigo, Denies dizziness, Denies headache(s), Denies loss of vision, Denies memory loss, Denies numbness and Denies tingling Psych Denies anxiety, Denies behavioral changes, Denies depression, Denies memory loss and Denies panic attacks Jayy/Lymph Denies easy bleeding and Denies easy bruising Aller/Immun Denies wheezing Physical exam (Primary Care) Vital Signs: Last Vital Signs Pulse 64 08/11/23 08:07 BP 112/52 L 08/11/23 08:07 Pulse Ox 99 08/11/23 08:07 Oxygen Delivery Method Room Air 08/11/23 08:07 BMI result Body Mass Index 24.7 Tobacco/Smoking Status: Tobacco use Status Tobacco use date assessed 12/09/22 08/11/23 08:12 Patient Tobacco Use Status Never used Tobacco 08/11/23 08:12 e-Cigarette/Vaping Use Never Used 08/11/23 08:12 PHQ-9: PHQ-9 Score PHQ-9: Total score 0 08/11/23 08:21 Depression Screening Interpretation: Negative Thrive Assessment: Date of Thrive Assessment Date Thrive assessed 12/09/22 08/11/23 08:12 Const General: healthy appearing, no acute distress, alert and awake Nutritional Appearance: well nourished Orientation/consciousness: oriented to person, oriented to place and oriented to time HENMT Ears: TM's normal bilaterally General nose exam: Normal nasal mucous membranes and turbinates present Eyes Conjunctivae: conjunctivae normal Sclerae: sclerae normal Pupils: Equal, round and reactive pupils present Neck Neck: Yes no lymphadenopathy and Yes no JVD Thyroid: Thyroid normal Carotids: no bruits Resp Effort & Inspection: normal respiratory effort and not tachypneic Auscultation: no crackles, no rales, no rhonchi and no wheezes Cardio Rate: regular rate Rhythm: regular rhythm Heart sounds: no murmurs and normal S1 and S2 GI Palpation (GI): Soft to palpation, nontender, no hepatomegaly and no splenomegaly Auscultation: normal bowel sounds Abdomen image: 2 1. SMALL PALPABLE LUMP JUST UNDERNEATH UMBILICUS. Skin General skin exam: no rashes or lesions noted and dry skin Neuro General: oriented to person, oriented to place and oriented to time Cranial nerves: Yes Equal, round and reactive pupils present Speech: No Abnormal speech present Gait exam (Neuro): Normal gait present Motor exam (neuro): no tremor noted Extrem Right upper extremity: full ROM Left upper extremity: full ROM Right lower extremity: full ROM; no edema Left lower extremity: full ROM; no edema Psych Mental Status: mental status grossly normal Speech and movement: Normal speech and movement present Affect: normal affect Attitude: cooperative Thought process: Normal thought process present Assessment and Plan Assessment & Plan (1) Umbilical hernia: Code(s): K42.9 - Umbilical hernia without obstruction or gangrene Qualifiers: Obstruction and gangrene presence: with obstruction but without gangrene Qualified Code(s): K42.0 - Umbilical hernia with obstruction, without gangrene Plan: Patient's clinical presentation most concerning for a umbilical hernia. Will send for CT of abdomen and pelvis to confirm suspicions. Will refer to general surgeon for evaluation of possible surgical fix. Orders: Orders 2 CT abdomen pelvis w IV con Today K42.0 - Umbilical hernia with obstruction, without gangrene Referrals 2 General Surgery Referral K42.0 - Umbilical hernia with obstruction, without gangrene Coding Level of Care Code Est Pt Level 4 (29981) Diagnoses Umbilical hernia with obstruction, without gangrene K42.0 Obstruction and gangrene presence: with obstruction but without gangrene
== END 2023-08-11 08:26 | disposition home or self-care (01) ==
PROVIDERS: PCP Internal Medicine; Visit Provider Physician Assistant
DX: K42.0 Umbilical hernia with obstruction, without gangrene (principal)
CPT/HCPCS: 99214

== ENCOUNTER 2023-08-21 08:23 | Day surgery (SDC) | payer OTHER, SELFPAY ==
[2023-08-19 09:18] VITALS: BMI 24.7
--- NOTE | 2023-08-20 10:38 | HO.ANESPROP2 ---
Documented by User: Anay Toledo NP 08/20/23 10:45 HPI - Anesthesia Eval Consult details Narrative: 48yo F for Colonoscopy s/p corneal transplant s/p tubal PMFSH Active Problems Active Problems: All Active Problems (Updated 08/11/23 @ 08:21 by Francisco Morris PA-C) Umbilical hernia (Acute) Diastasis recti (Acute) Head and neck lymphadenopathy (Acute) Colon cancer screening (Acute) Submandibular lymphadenopathy (Acute) Family history of colonic polyps (Acute) Physical exam (Acute) Polyarthralgia (Acute) Pre-op evaluation (Acute) Palpitations (Acute) Anxiety and depression (Acute) Medicare annual wellness visit, initial (Acute) Cervical cancer screening (Acute) Well woman exam with routine gynecological exam (Acute) Lateral epicondylitis, right elbow (Acute) Lymphadenopathy (Acute) Breast calcifications on mammogram (Acute) MIGUEL (generalized anxiety disorder) (Acute) Insomnia (Acute) Mild recurrent major depression (Acute) Skin lesion (Acute) Right elbow pain (Acute) Past Medical History Medical History Lymphadenopathy Breast calcifications on mammogram MIGUEL (generalized anxiety disorder) Insomnia Mild recurrent major depression Skin lesion Right elbow pain Family History Family History Father Prostate cancer Colon polyp Mother Hypertension Mental health disorder Colon polyp Daughter No problems noted. Father Prostate cancer Mother Hypertension Surgical History Surgical History Corneal transplant status H/O right breast biopsy Hx of colonoscopy History of cosmetic surgery History of bilateral tubal ligation History of keratoplasty History of vitrectomy Social History Social History Housing: House Alcohol intake: never Patient Tobacco Use Status: Never used Tobacco e-Cigarette/Vaping Use: Never Used Second Hand Smoke Exposure: No Advance Directives: No Advance Directives Information Provided: Yes service: No Current occupational status: unemployed Current occupation: Right Handed Cognitive needs: No Hearing needs: No Vision needs: Yes (Glasses) Meds Allergies Allergy/AdvReac Type Severity Reaction Status Date / Time tramadol AdvReac Intermediate Chest Pain Verified 08/11/23 08:13 Home Medications Medication Instructions Recorded Confirmed Last Taken Type brimonidine 0.2 %-timolol 0.5 % 1 drp ophthalmic (eye) BID 11/26/21 08/19/23 Unknown History eye drops (Combigan) dorzolamide 2 % eye drops 1 drp ophthalmic (eye) BID 11/26/21 08/19/23 Unknown History netarsudil 0.02 %-latanoprost 1 drp ophthalmic (eye) QPM 11/26/21 08/19/23 Unknown History 0.005 % eye drops (Rocklatan) prednisolone acetate 1 % eye 1 drp ophthalmic (eye) BID 11/26/21 08/19/23 Unknown History drops,suspension bupropion HCl 100 mg tablet,12 hr 100 mg PO BID 06/18/22 08/19/23 Unknown History sustained-release trazodone 50 mg tablet 50 mg PO BEDTIME PRN Insomnia 01/20/23 08/19/23 Unknown History escitalopram oxalate 20 mg tablet 20 mg PO DAILY 01/31/23 08/19/23 Unknown History lorazepam 1 mg tablet 1 mg PO DAILY PRN Anxiety 06/09/23 08/19/23 Unknown History Exam Exam Date and Time: August 20, 2023 1038 Height,Weight and Vital Signs: Height 5 ft 2 in Weight 61.235 kg Pertinent Lab Results Pertinent Lab Results: Laboratory Tests 12/09/22 15:07 WBC 7.6 Hgb 12.7 Hct 38.9 Plt Count 361 D Sodium 138 Potassium 4.4 Chloride 103 Carbon Dioxide 26 BUN 8 L Creatinine 0.72 Narrative Narrative: EKG 09/2022 SB @ 58 ECHO 2021 Conclusions: - The left ventricular systolic function is normal. The calculated ejection fraction is 58% by biplane method. - No obvious valvular pathology seen on this study. Assessment and Plan Assessment Anesthesia Assessment: Chart Reviewed Documented by User: Niyah Ozuna MD 08/21/23 09:47 PMFSH Past Medical History Medical History Lymphadenopathy Breast calcifications on mammogram MIGUEL (generalized anxiety disorder) Insomnia Mild recurrent major depression Skin lesion Right elbow pain Family History Family History Father Prostate cancer Colon polyp Mother Hypertension Mental health disorder Colon polyp Daughter No problems noted. Father Prostate cancer Mother Hypertension Family history of problems with anesthesia: No Surgical History Surgical History Corneal transplant status H/O right breast biopsy Hx of colonoscopy History of cosmetic surgery History of bilateral tubal ligation History of keratoplasty History of vitrectomy History of Problems with Anesthesia: No Social History Social History Housing: House Alcohol intake: never Patient Tobacco Use Status: Never used Tobacco e-Cigarette/Vaping Use: Never Used Second Hand Smoke Exposure: No Advance Directives: No Advance Directives Information Provided: Yes service: No Current occupational status: unemployed Current occupation: Right Handed Cognitive needs: No Hearing needs: No Vision needs: Yes (Glasses) Meds Allergies Allergy/AdvReac Type Severity Reaction Status Date / Time tramadol AdvReac Intermediate Chest Pain Verified 08/11/23 08:13 Home Medications Medication Instructions Recorded Confirmed Last Taken Type brimonidine 0.2 %-timolol 0.5 % 1 drp ophthalmic (eye) BID 11/26/21 08/19/23 Unknown History eye drops (Combigan) dorzolamide 2 % eye drops 1 drp ophthalmic (eye) BID 11/26/21 08/19/23 Unknown History netarsudil 0.02 %-latanoprost 1 drp ophthalmic (eye) QPM 11/26/21 08/19/23 Unknown History 0.005 % eye drops (Rocklatan) prednisolone acetate 1 % eye 1 drp ophthalmic (eye) BID 11/26/21 08/19/23 Unknown History drops,suspension bupropion HCl 100 mg tablet,12 hr 100 mg PO BID 06/18/22 08/19/23 Unknown History sustained-release trazodone 50 mg tablet 50 mg PO BEDTIME PRN Insomnia 01/20/23 08/19/23 Unknown History escitalopram oxalate 20 mg tablet 20 mg PO DAILY 01/31/23 08/19/23 Unknown History lorazepam 1 mg tablet 1 mg PO DAILY PRN Anxiety 06/09/23 08/19/23 Unknown History Exam Airway Mallampati Class: II TM Dist: >3cm Neck ROM: Full Heart: rrr Lungs: cta Assessment and Plan Assessment Anesthesia Assessment: Anesthesia Plan Discussed Final Anesthetic Review Family History of Problems with Anesthesia: No History of Problems with Anesthesia: No NPO: Yes ASA Class: II Final Preanesthetic Review: No Changes in Pt Med Stat, Meds/Allgs Chart Reviewed, Consent Obtained/Reviewed and Anes Risks/Benef Reviewed Patient Risk: Low Procedure Risk: Low Anesthetic Plan Anesthetic Plan: MAC: Disposition: Standard PACU
[2023-08-21 09:22] VITALS: BP 95/50; PULSE 64; RESP 16; TEMP 36.8; O2SAT 100; BMI 23.8
--- NOTE | 2023-08-21 10:52 | MHC.SHP ---
Pre-Procedural Eval Section A Date of Service: 08/21/23 Section B Chief Complaint: Family history of colonic polyps,screening Details of Present Illness: PMH: Breast calcifications on mammogram MIGUEL (generalized anxiety disorder) Insomnia Lymphadenopathy Mild recurrent major depression Right elbow pain Skin lesion Surgical History H/O right breast biopsy History of bilateral tubal ligation History of cosmetic surgery History of eye surgery History of keratoplasty History of vitrectomy Hx of colonoscopy Present Medications: see Short Stay Collaborative assessment Allergies: Allergies Allergy/AdvReac Type Severity Reaction Status Date / Time tramadol AdvReac Intermediate Chest Pain Verified 08/11/23 08:13 Review of Systems Review of Systems Comment: Ten point ROS negative Exam Exam Comment: Gen appear: No acute distress HEENT: no icterus Chest: No overt resp distress Abd: soft, nontender, nondistended Psych: Stable affect, answering questions appropriately Neuro: A/Ox3 noted to move all extremities spontaneously Ext: no peripheral edema Plan Diagnosis/Plan: Unchanged I have reviewed the history and physical and performed a pertinent physical examination on my patient. No changes have occurred unless specified. Time Spent With Patient Time: Total time managing care of this patient today ____ minutes.
--- NOTE | 2023-08-21 10:52 | W.PM.OPN ---
Operative Note Operative Note Date of Service: 08/21/23 Narrative: Procedure: Colonoscopy Indication: Family hx of advanced polyps Endoscopist: Samanta Hyde MD Anesthesia Provider: Dr Yobani Swan Anesthesia type: MAC Instrument: Olympus [id number]-H190L Consent: Indication, risks vs benefits, and alternatives were discussed with the patient who gave written informed consent to proceed. An phlebotomist supervisor/instructor was utilized to assist with the consent. EKG, pulse, pulse oximetry and blood pressure were monitored throughout the procedure. Please see anesthesia flowsheet. Procedure: The patient was brought to the procedure room and placed in the left lateral decubitus position. IV medications were administered by the anesthesia provider in attendance. A digital rectal exam was performed which was normal. A distal attachment cap was affixed to the tip of the scope and the colonoscope was then inserted through the anus and advanced through the colon to the cecum at 75 cm,and terminal ileum. Mucosa was carefully examined under high definition white light as the instrument was slowly withdrawn in a retrograde panoramic fashion. Retroflexion was performed in rectum. The procedure was not difficult. There were no immediate obvious complications. The quality of the prep was BBPS: 3+2+3 = adequate Withdrawal time 9 minutes. Limitations: No limitations. Findings: Mucosa: Normal to cecum and terminal ileum. Protruding lesions: 1 sessile polyp of size 2 mm in descending colon. Cold forceps polypectomy was performed. The polyp was completely removed and retrieved. Medium internal hemorrhoids without stigmata of recent bleeding. Impression: 1. Normal colon and terminal ileum mucosa 2. Total of 1 polyp removed 3. Internal hemorrhoids Recommendations: - Follow path results. - Repeat colonoscopy in 5 years due to family hx of advanced polyps
[2023-08-21 10:58] VITALS: BP 102/64; PULSE 65; RESP 16; TEMP 36.7; O2SAT 100
[2023-08-21 11:13] VITALS: BP 111/57; PULSE 60; RESP 16; O2SAT 100
[2023-08-21 11:28] VITALS: BP 114/62; PULSE 57; RESP 16; TEMP 36.8; O2SAT 100
== END 2023-08-21 12:07 | disposition home or self-care (01) ==
PROVIDERS: PCP Internal Medicine; Visit Provider Internal Medicine
PROC: 0DJD8ZZ Inspection of Lower Intestinal Tract, Via Natural or Artificial Opening Endoscopic (ICD-10-PCS; CPT 45378; principal; 2023-08-21 09:10)
DX: Z12.11 Encounter for screening for malignant neoplasm of colon (principal); D12.4 Benign neoplasm of descending colon; K64.8 Other hemorrhoids; Z83.719 Family history of colon polyps, unspecified
CPT/HCPCS: 45380; 88305

== ENCOUNTER → 2023-08-21 08:23 | Outpatient (BNV) | payer OTHER, SELFPAY | PROVIDERS: PCP Internal Medicine; Visit Provider Internal Medicine | DX: Z12.11 Encounter for screening for malignant neoplasm of colon (principal); Z83.71 Family history of colonic polyps; D12.4 Benign neoplasm of descending colon; K64.8 Other hemorrhoids | CPT/HCPCS: 45380 ==

== ENCOUNTER 2023-09-01 09:59 | Outpatient (AMB) | payer MEDICARE, SELFPAY ==
--- NOTE | 2023-09-01 10:05 | MHC.OFFVIS ---
Intake Vital Signs 09/01/23 10:07 09/01/23 10:37 Height 5 ft 2 in Weight 132 lb 4.438 oz BMI 24.2 BP 93/46 L 103/64 Blood Pressure Location Lt brachial Lt brachial Position Sitting Sitting Pulse 46 L 66 Intake Visit Reasons: S/P [place]; Dr. Hyde Intake Note: Esme presents in the office as a follow up colonoscopy. CC: She states that she is having here for the results. Acquisition Manager Required: Yes Acquisition Manager Name: Tricia [id number] Allergies tramadol Adverse Reaction (Intermediate, Verified 09/01/23 10:07) Chest Pain HPI HPI Comments History of Present Illness Details 47y.o F with family hx of colon polyps who is here for results of recent colo. 01/31/23: Pt currently has no gastrointestinal complaints. No abd pain, N/V/D, blood in stool. Fam hx is pertinent for possible advanced polyp in mother at the age of 60s who required a partial colectomy for it. Sister also possibly has advanced polyp as goes every 3 years since her 40s. Pt's last colo was 5 years ago and did not have polyps at that time. Was done in [place]. 08/21/23: Impression: 1. Normal colon and terminal ileum mucosa 2. Total of 1 polyp removed 3. Internal hemorrhoids Path: Colon, descending, polypectomy: Tubular adenoma; negative for high-grade dysplasia 09/01/23: Here for results of colo. Seen with online storage solutions architect. Reports no issues post colonoscopy. Results of colo reviewed including the path. [facility] Medical History Lymphadenopathy Breast calcifications on mammogram MIGUEL (generalized anxiety disorder) Insomnia Mild recurrent major depression Skin lesion Right elbow pain Surgical History Corneal transplant status H/O right breast biopsy Hx of colonoscopy History of cosmetic surgery History of bilateral tubal ligation History of keratoplasty History of vitrectomy Family History Father Prostate cancer Colon polyp Mother Hypertension Mental health disorder Colon polyp Daughter No problems noted. Father Prostate cancer Mother Hypertension Social History Housing: House Alcohol intake: never Patient Tobacco Use Status: Never used Tobacco e-Cigarette/Vaping Use: Never Used Second Hand Smoke Exposure: No service: No Current occupational status: unemployed Current occupation: Right Handed Cognitive needs: No Hearing needs: No Vision needs: Yes (Glasses) Female Reproductive History Menstrual Age of Menarche: 12 Review of Systems Const All systems reviewed & are unremarkable except as noted in HPI and below Physical Exam Vital Signs: Last Vital Signs Pulse 66 09/01/23 10:37 BP 103/64 09/01/23 10:37 BMI result Body Mass Index 24.2 Gen appear: NAD HEENT: nonicteric, no cervical lymphadenopathy Chest: CTA CVS: Regular S1/S2 Abd: soft, nontender, nondistended, bowel sounds + Ext: no peripheral edema Neuro: A/Ox3, noted to move all extremities spontaneously Psych: interacting appropriately Assessment & Plan Assessment & Plan (1) Family history of colonic polyps: Code(s): Z83.71 - Family history of colonic polyps (2) Personal history of colonic polyps: Code(s): Z86.010 - Personal history of colonic polyps Patient Instructions: Reviewed that due to fam hx of advanced polyps, would recommend next colo in 5 years i.e 2027. Reminder set and pt's bulletin board updated. Follow up PRN. Coding Level of Care Code Est Pt Level 4 (97403) Diagnoses Family history of colonic polyps Z83.71 Personal history of colonic polyps Z86.010
[2023-09-01 10:07] VITALS: BP 93/46; PULSE 46; BMI 24.2
[2023-09-01 10:37] VITALS: BP 103/64; PULSE 66
== END 2023-09-01 11:00 | disposition home or self-care (01) ==
PROVIDERS: PCP Internal Medicine; Visit Provider Internal Medicine
DX: Z83.71 Family history of colonic polyps (principal); Z86.010 Personal history of colon polyps
CPT/HCPCS: 99214

== ENCOUNTER → 2023-09-01 09:59 | Outpatient (BNVA) | payer MEDICARE, SELFPAY | PROVIDERS: PCP Internal Medicine; Visit Provider Internal Medicine | DX: Z86.010 Personal history of colon polyps (principal); Z83.719 Family history of colon polyps, unspecified | CPT/HCPCS: 99212 ==

== ENCOUNTER 2023-09-19 09:00 | Outpatient (REF) | payer MEDICARE, SELFPAY ==
--- NOTE | ~2023-09-19 | CT_ITS ---
EXAMINATION: CT ABDOMEN AND PELVIS WITH CONTRAST CLINICAL INFORMATION: Umbilical hernia with obstruction, without gangrene. COMPARISON: None available. TECHNIQUE: Multidetector volumetric images were obtained from the superior aspect of the liver through the pubic symphysis following administration 85 mL of Omnipaque 350 intravenous contrast. Sagittal and coronal reformatted images were obtained on the technologist's workstation. Oral contrast: No This CT examination was performed using dose optimization techniques as appropriate, variously including the following: *Automated exposure control *Adjustment of mA and/or kV according to patient size (this includes techniques or standardized protocols for targeted exams where dose is matched to indication/reason for exam; i.e. extremities or head) *Use of iterative reconstruction technique DLP: 301 mGy-cm FINDINGS: LUNG BASES: The visualized lung bases are unremarkable. LIVER, GALLBLADDER, AND BILIARY TREE: The liver is normal in size, shape, and attenuation. No focal hepatic lesion or biliary ductal dilatation is present. The gallbladder is unremarkable with no evidence of radiopaque gallstones, gallbladder wall thickening, or obvious pericholecystic inflammatory changes. PANCREAS: Unremarkable. SPLEEN: Unremarkable. ADRENAL GLANDS: No adrenal mass. KIDNEYS AND URETERS: The kidneys are normal in size, shape, and attenuation. No hydronephrosis, hydroureter, or calculi seen. No perinephric stranding. BLADDER: Unremarkable. GASTROINTESTINAL TRACT: Small hiatal hernia. The small and large bowel are normal in caliber. The appendix appears normal. ABDOMINAL WALL: Suspect panniculectomy. There is a fat-containing periumbilical hernia with neck measuring 1.3 x 0.6 cm and sac measuring 1.6 x 1.5 x 0.9 cm. LYMPH NODES: No adenopathy. VASCULAR: No aortic aneurysm. PELVIC VISCERA: Unremarkable. OSSEOUS STRUCTURES: No suspicious osseous lesions. Minimal endplate degenerative changes in the spine. CT/CT abdomen pelvis w IV con IMPRESSION: Small fat-containing umbilical hernia. Fleischner guidelines were followed.
[2023-09-19 10:24] LABS: Anion Gap 11 (12-20); Blood Urea Nitrogen 9 mg/dL (9-16); Calcium 9.2 mg/dL (8.4-10.2); Carbon Dioxide 28 mmol/L (22-29); Chloride 105 mmol/L (96-108); Estimated Glomerular Filt Rate > 60; Glucose Random 98 mg/dL (60-115); Potassium 4.3 mmol/L (3.3-5.1); Sodium 140 mmol/L (135-145)
[2023-09-19] MEDS: iohexoL 350 MG/ML 100 ML INFUS..BTL IV (10:48)
== END 2023-09-19 09:01 | disposition home or self-care (01) ==
LOC: HO.CT 09:00
PROVIDERS: PCP Internal Medicine; Visit Provider Physician Assistant
DX: Z01.812 Encounter for preprocedural laboratory examination (principal); K42.0 Umbilical hernia with obstruction, without gangrene
CPT/HCPCS: 36415; 74177; 80048; Q9967

== ENCOUNTER 2023-09-29 09:06 | Outpatient (AMB) | payer OTHER, SELFPAY ==
--- NOTE | 2023-09-29 09:10 | A.OFFVIS_ITS ---
Intake Vital Signs 09/29/23 09:16 Height 5 ft 2 in Weight 137 lb BMI 25.1 BP 117/55 L Blood Pressure Location Rt brachial Position Sitting Pulse 74 Intake Visit Reasons: umbilical hernia Intake Note: This patient presents for an assessment for an umbilical hernia. Patient c/o; reports bulge, reports pain and discomfort, reports no changes in bowel habits. 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 She is complaining of umbilical pain. She has had workup for this which included CT scan demonstrating an umbilical hernia. Patient is otherwise tolerating her diet, having regular bowel habits. No other GI issues or complaints. Past surgical history noteworthy for abdominoplasty and tubal ligation. Chart was reviewed patient evaluated [facility] Medical History Lymphadenopathy Breast calcifications on mammogram MIGUEL (generalized anxiety disorder) Insomnia Mild recurrent major depression Skin lesion Right elbow pain Surgical History Corneal transplant status H/O right breast biopsy Hx of colonoscopy History of cosmetic surgery History of bilateral tubal ligation History of keratoplasty History of vitrectomy Family History Father Prostate cancer Colon polyp Mother Hypertension Mental health disorder Colon polyp Daughter No problems noted. Father Prostate cancer Mother Hypertension Social History Housing: House Alcohol intake: never Patient Tobacco Use Status: Never used Tobacco e-Cigarette/Vaping Use: Never Used Second Hand Smoke Exposure: No service: No Current occupational status: unemployed Current occupation: Right Handed Cognitive needs: No Hearing needs: No Vision needs: Yes (Glasses) Female Reproductive History Menstrual Age of Menarche: 12 Physical Exam Vital Signs: Last Vital Signs Pulse 74 09/29/23 09:16 BP 117/55 L 09/29/23 09:16 BMI result Body Mass Index 25.1 Chest Other: Chest breath sounds bilaterally, HS 1 in 2 GI Other: Patient was examined both supine and standing with Valsalva. Abdomen soft. No groin hernias. Approximately 2 cm irreducible umbilical hernia. Assessment & Plan Assessment & Plan (1) Umbilical hernia: Code(s): K42.9 - Umbilical hernia without obstruction or gangrene Qualifiers: Obstruction and gangrene presence: with obstruction but without gangrene Qualified Code(s): K42.0 - Umbilical hernia with obstruction, without gangrene Plan Risks, benefits, alternatives of open umbilical hernia repair with mesh reviewed with the patient and included but not limited to bleeding, infection, recurrence, numbness, pain, scarring the patient was to proceed. All questions were answered. Arrangements will be made for this. Coding Level of Care Code New Pt Level 5 (87026) Diagnoses Umbilical hernia with obstruction, without gangrene K42.0 Obstruction and gangrene presence: with obstruction but without gangrene
[2023-09-29 09:16] VITALS: BP 117/55; PULSE 74; BMI 25.1
== END 2023-09-29 09:28 | disposition home or self-care (01) ==
PROVIDERS: PCP Internal Medicine; Referring Provider Physician Assistant; Visit Provider Surgery
DX: K42.0 Umbilical hernia with obstruction, without gangrene (principal)
CPT/HCPCS: 99214

== ENCOUNTER → 2023-09-29 09:06 | Outpatient (BNVA) | payer OTHER, SELFPAY | PROVIDERS: PCP Internal Medicine; Referring Provider Physician Assistant; Visit Provider Surgery ==

== ENCOUNTER 2023-11-10 13:04 | Outpatient (REF) | payer OTHER, SELFPAY ==
--- NOTE | ~2023-11-10 | US_ITS ---
EXAMINATION: US SOFT TISSUE NECK CLINICAL INFORMATION: Generalized enlarged lymph nodes. COMPARISON: Ultrasound soft tissue head/neck 05/13/2023 and 12/26/2022. TECHNIQUE: Linear transducer grayscale and color Doppler examination of the left neck. FINDINGS: Targeted sonographic interrogation of the left neck was performed at the areas of concern indicated by the patient. Radiologist was not in attendance. Images were later provided for interpretation. A submandibular lymph node measures 1.6 x 0.5 x 0.8 cm, previously 1.2 x 1.0 x 0.5 cm. New submandibular lymph node measures 1.4 x 0.6 x 1.2 cm. A preauricular lymph node measures 0.6 x 0.3 x 0.4 cm, previously 0.5 x 0.2 x 0.3 cm. These lymph nodes demonstrate reniform morphology, echogenic centers and vascular flow to the hilum. US/US soft tiss head and/or neck IMPRESSION: Slight interval increase in size of previously demonstrated lymph nodes within the submandibular lymph node measuring 1.4 x 0.6 x 1.2 cm. The decision to follow the area of concern should be based on the clinical assessment. If clinically indicated further cross-sectional imaging could be performed.
== END 2023-11-10 13:05 | disposition home or self-care (01) ==
LOC: HO.US 13:04
PROVIDERS: PCP Internal Medicine; Visit Provider Surgery
DX: R59.1 Generalized enlarged lymph nodes (principal)
CPT/HCPCS: 76536

== ENCOUNTER 2023-12-09 09:24 | Outpatient (AMB) | payer OTHER, SELFPAY ==
[2023-12-09 09:30] VITALS: BP 110/68; PULSE 72; BMI 25.8
--- NOTE | 2023-12-09 09:30 | A.OFFVIS_ITS ---
Intake Vital Signs 12/09/23 09:30 Height 5 ft 2 in Weight 141 lb 1.533 oz BMI 25.8 BP 110/68 Blood Pressure Location Lt brachial Position Sitting Pulse 72 Intake Visit Reasons: Follow Up Lymphadenopathy Intake Note: Patient here to f/u lymphadenopathy. Recent Head and Neck US on 11-10-23. 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 She had a recent ultrasound of the neck demonstrating some mild increase of her left cervical adenopathy. She herself has no issues or complaints. She denies any fever, chills, night sweats, weight loss. Energy, appetite and weight are stable. [facility] Medical History Lymphadenopathy Breast calcifications on mammogram MIGUEL (generalized anxiety disorder) Insomnia Mild recurrent major depression Skin lesion Right elbow pain Surgical History Corneal transplant status H/O right breast biopsy Hx of colonoscopy History of cosmetic surgery History of bilateral tubal ligation History of keratoplasty History of vitrectomy Family History Father Prostate cancer Colon polyp Mother Hypertension Mental health disorder Colon polyp Daughter No problems noted. Father Prostate cancer Mother Hypertension Social History Housing: House Alcohol intake: never Patient Tobacco Use Status: Never used Tobacco e-Cigarette/Vaping Use: Never Used Second Hand Smoke Exposure: No service: No Current occupational status: unemployed Current occupation: Right Handed Cognitive needs: No Hearing needs: No Vision needs: Yes (Glasses) Female Reproductive History Menstrual Age of Menarche: 12 Physical Exam Vital Signs: Last Vital Signs Pulse 72 12/09/23 09:30 BP 110/68 12/09/23 09:30 BMI result Body Mass Index 25.8 HEENT Other: No obvious cervical, periclavicular, or axillary or groin adenopathy demonstrated. Assessment & Plan Assessment & Plan (1) Lymphadenopathy: Code(s): R59.1 - Generalized enlarged lymph nodes Plan Current plan is to have the patient undergo formal ENT evaluation and direct further interventions and studies based on the cardiology consultants's evaluation. All questions answered. Arrangements were made for this. Coding Level of Care Code Est Pt Level 4 (10717) Diagnoses Lymphadenopathy R59.1
== END 2023-12-09 09:39 | disposition home or self-care (01) ==
PROVIDERS: PCP Internal Medicine; Visit Provider Surgery
DX: R59.1 Generalized enlarged lymph nodes (principal)
CPT/HCPCS: 99214

== ENCOUNTER → 2023-12-09 09:24 | Outpatient (BNVA) | payer OTHER, SELFPAY | PROVIDERS: PCP Internal Medicine; Visit Provider Surgery ==

== ENCOUNTER 2023-12-11 14:16 | Outpatient (AMB) | payer OTHER, SELFPAY ==
--- NOTE | 2023-12-11 14:17 | MHC.PC.OV ---
Vital Signs 12/11/23 14:19 Height 5 ft 2 in Weight 142 lb BMI 26.0 BP 110/70 Blood Pressure Location Lt brachial Position Sitting Intake Visit Reasons: Annual Exam Intake Note: Patient here for a physical exam Tipple Operator Required: No Accompanied by: Self / Same As Patient Allergies tramadol Adverse Reaction (Intermediate, Verified 12/11/23 14:31) Chest Pain Medication List - Last Reconciled 12/11/23 by Dinorah Hernandez MD brimonidine-timolol 0.2-0.5 % (Combigan) 1 drp ophthalmic (eye) BID bupropion HCl 100 mg PO BID dorzolamide 2% 1 drp ophthalmic (eye) BID escitalopram oxalate 20 mg PO DAILY Grab bar As directed [handheld shower As directed] lorazepam 1 mg PO DAILY PRN netarsudil-latanoprost 0.02-0.005 % (Rocklatan) 1 drp ophthalmic (eye) QPM prednisolone acetate 1% 1 drp ophthalmic (eye) BID Shower Chair with sides trazodone 50 mg PO BEDTIME PRN Tobacco use date assessed: 12/11/23 Dental Screening Dental Screen Date: 12/11/23 Did you have a dental visit in the last 12 months?: Yes Did you have a dental problem in the last 6 months where you did not have access to dental care?: No Was dental information given to patient?: Patient has dentist HPI HPI Comments History of Present Illness Details This is a 48-year-old female that comes accompanied by significant other for her physical exam. She has mild recurrent major depression follow by Psychiatry and has been stable with medications. Last mammogram was 2022. Last Pap smear was 2022. Last colonoscopy was 2022 showing a tubular adenoma and this is follow by Gastroenterology. Has neck lymphadenopathy that was evaluated by general surgeon and he will refer her to ENT. Had umbilical hernia repair and since then has a lump below and hardness around the umbilicus. She has discomfort while using pads. [facility] Medical History (Updated 12/11/23 @ 14:47 by Dinorah Hernandez MD) Breast calcifications on mammogram MIGUEL (generalized anxiety disorder) Insomnia Mild recurrent major depression Skin lesion Right elbow pain Surgical History History of umbilical hernia History of appendectomy Lymphadenopathy Corneal transplant status H/O right breast biopsy Hx of colonoscopy History of cosmetic surgery History of bilateral tubal ligation History of keratoplasty History of vitrectomy Family History (Updated 12/11/23 @ 14:38 by Dinorah Hernandez MD) Father Prostate cancer Colon polyp Mother Hypertension Mental health disorder Colon polyp Skin cancer Daughter No problems noted. Father Prostate cancer Mother Hypertension Social History Housing: House Alcohol intake: never Patient Tobacco Use Status: Never used Tobacco e-Cigarette/Vaping Use: Never Used Second Hand Smoke Exposure: No service: No Current occupational status: unemployed Current occupation: Right Handed Cognitive needs: No Hearing needs: No Vision needs: Yes (Glasses) Female Reproductive History Menstrual Age of Menarche: 12 Questionnaire PHQ-9 Over the last 2 weeks, how often have you been bothered by any of the following problems? 1. Little interest or pleasure in doing things: several days 2. Feeling down, depressed, or hopeless: several days 3. Trouble falling or staying asleep, or sleeping too much: more than half the days 4. Feeling tired or having little energy: several days 5. Poor appetite or overeating: several days 6. Feeling bad about yourself - or that you are a failure or have let yourself or your family down: not at all 7. Trouble concentrating on things, such as reading the newspaper or watching television: not at all 8. Moving or speaking so slowly that other people could have noticed. Or the opposite - being so fidgety or restless that you have been moving around a lot more than usual: not at all 9. Thoughts that you would be better off or of hurting yourself in some way: not at all Total score: 6 Depression Screening Interpretation: Positive Depression Screening Follow-up: Existing condition, In treatment and Community Mental Health Worker F/U Depression Screening Done: Yes 16851 - PHQ-9 Billing: Yes Source: Developed by Drs. Jesus Isbell, Lolly Waters, Fernando Carter and colleagues, with an educational anel from [employer]. Thrive Questionnaire Date Thrive assessed: 12/11/23 I am a: Patient What is your living situation today?: I have a steady place to live Within the past 12 months, did the food you bought not last and you didn't have the money to get more?: Never true Within the past 12 months, did you worry whether your food would run out before you got money to buy more?: Never true Do you have trouble paying for medicines?: No Do you have trouble getting transportation to medical appointments?: No Do you have trouble paying your heating and electricity bill?: No Do you have trouble taking care of your child, family member or friend?: No Do you have trouble with day-to-day activities such as bathing, preparing meals, shopping, managing finances, etc.?: No Are you currently unemployed and looking for a job?: No Are you interested in more education?: No Please select the resources that you would like help with: None Currently or been in a relationship where the following occur: no concerns reported THRIVE Score: 0 AUDIT C Alcohol Use Questionnaire (AUDIT-C) 1. How often do you have a drink containing alcohol?: Never Total Score: 0 Score Reviewed/Action Taken: No MIGUEL-7 AMB Questionnaire MIGUEL-7 Date MIUGEL - 7 assessed: 12/11/23 Feeling nervous, anxious, or on edge: 1 = Several days Not being able to stop or control worryin = Not at all Worrying too much about different things: 1 = Several days Trouble relaxin = Not at all Being so restless that it is hard to sit still: 0 = Not at all Becoming easily annoyed or irritable: 0 = Not at all Feeling afraid as if something awful might happen: 1 = Several days Total MIGUEL-7 score (0-4 normal; 5-9 mild; 10-14 moderate; 15-21 severe): 3 Source: Developed by Drs. Jesus Isbell, Lolly Waters, Fernando Carter and colleagues, with an educational anel from [employer]. MIGUEL-7 Assessment Billing MIGUEL-7 Assessment Tool: MIGUEL-7 Assessment 03142 Review of Systems Const All systems reviewed & are unremarkable except as noted in HPI and below Eyes Reports no additional complaints, Denies change in vision and Denies other visual disturbances Card Denies chest pain at rest, Denies chest pain with activity, Denies edema, Denies irregular heart rhythm, Denies claudication, Denies dyspnea, Denies dyspnea on exertion, Denies orthopnea, Denies paroxysmal nocturnal dyspnea and Denies slow heart rate Resp Denies cough, Denies dyspnea and Denies dyspnea on exertion GI Denies abdominal pain, Denies change in bowel habits, Denies excessive flatus, Denies nausea and Denies vomiting Denies urinary incontinence, Denies urinary hesitancy and Denies urinary urgency Musc Denies abnormal gait, Denies atrophy, Denies deformity and Denies limited range of motion Skin/Breast Denies bleeding lesions, Denies changing lesions and Denies rash Neuro Denies abnormal gait, Denies behavioral changes, Denies confusion and Denies lack of coordination Psych Denies behavioral changes and Denies confusion Physical exam (Primary Care) Vital Signs: Last Vital Signs BP 110/70 12/11/23 14:19 BMI result Body Mass Index 26.0 Tobacco/Smoking Status: Tobacco use Status Tobacco use date assessed 12/11/23 12/11/23 14:25 Patient Tobacco Use Status Never used Tobacco 12/11/23 14:19 e-Cigarette/Vaping Use Never Used 12/11/23 14:19 PHQ-9: PHQ-9 Score PHQ-9: Total score 6 12/11/23 14:25 Depression Screening Interpretation: Positive Depression Screening Follow-up: Existing condition, In treatment and Community Mental Health Worker F/U Thrive Assessment: Date of Thrive Assessment Date Thrive assessed 12/11/23 12/11/23 14:25 Currently or been in a relationship where the following occur: no concerns reported Const General: No confusion Orientation/consciousness: patient oriented x3 and No confusion HENMT Head: Yes normal to inspection, Yes normocephalic and Yes atraumatic Ears: external ears normal Eyes Other: left corneal opacity Neck Neck: Yes normal visual inspection and Yes supple Resp Effort & Inspection: normal respiratory effort Auscultation: clear to auscultation bilaterally Cardio Jugular venous distension: no JVD Rate: regular rate Rhythm: regular rhythm Heart sounds: S1 normal heart sound present and S2 normal heart sound present GI Other: Lump behind umbilicus medially Palpation (GI): Soft to palpation and nontender Auscultation: normal bowel sounds Skin General skin exam: no rashes or lesions noted Neuro General: patient oriented x3, no focal motor deficits and No confusion Extrem General: Yes full ROM Psych Appearance: grossly normal Assessment and Plan Assessment & Plan (1) Physical exam: Code(s): Z00.00 - Encounter for general adult medical examination without abnormal findings Plan: Repeat in a year. (2) Mild recurrent major depression: Code(s): F33.0 - Major depressive disorder, recurrent, mild Plan: Continue bupropion and escitalopram. Follow-up with psychiatry. Orders: Orders US abdomen complete Today K42.9 - Umbilical hernia without obstruction or gangrene Lipid Panel Today Z00.00 - Encounter for general adult medical examination without abnormal findings Comprehensive [place]. Panel Fast Today Z00.00 - Encounter for general adult medical examination without abnormal findings Medications: New terbinafine HCl 250 mg PO DAILY 90 days 90 tabs 0RF B35.1 - Tinea unguium Coding Level of Care Code Est Pt Prev Care 40-64y(57501) Diagnoses Physical exam Z00.00 Mild recurrent major depression F33.0 Additional Codes MIGUEL-7 Assessment Billing - MIGUEL-7 Assessment Tool: MIGUEL-7 Assessment 22043 ([id number]) Time Spent (min) 34
[2023-12-11 14:19] VITALS: BP 110/70; BMI 26.0
== END 2023-12-11 14:45 | disposition home or self-care (01) ==
PROVIDERS: Visit Provider Internal Medicine
DX: Z00.00 Encounter for general adult medical examination without abnormal findings (principal); F33.0 Major depressive disorder, recurrent, mild
CPT/HCPCS: 99396

== ENCOUNTER 2023-12-25 15:01 | Outpatient (REF) | payer OTHER, SELFPAY ==
--- NOTE | ~2023-12-25 | US_ITS ---
EXAMINATION: US SUPERFICIAL PERIUMBILICAL, LIMITED/FOLLOW UP CLINICAL INFORMATION: Periumbilical hernia. COMPARISON: None available. TECHNIQUE: Limited, directed ultrasound examination was performed in the region of two periumbilical palpable lumps as indicated by the patient. Images were supplemented by color Doppler. FINDINGS: A scar is seen in the reported region of hernia repair. No new or recurrent hernia is identified. No particularly suspicious cystic, solid, vascular mass is identified in the region of two palpable lumps as indicated by the patient. US/US pelvic limited IMPRESSION: No suspicious ultrasonographic finding.
== END 2023-12-25 15:02 | disposition home or self-care (01) ==
LOC: HO.US 15:01
PROVIDERS: PCP Internal Medicine; Visit Provider Internal Medicine
DX: K42.9 Umbilical hernia without obstruction or gangrene (principal)
CPT/HCPCS: 76857

== ENCOUNTER 2023-12-31 08:35 | Outpatient (REF) | payer OTHER, SELFPAY ==
--- NOTE | ~2023-12-31 | US_ITS ---
EXAMINATION: US ABDOMEN LIMITED CLINICAL INFORMATION: Other intra-abdominal and pelvic swelling, mass and lump. COMPARISON: Limited pelvic ultrasound 12/25/2023. TECHNIQUE: Real-time imaging of the region of concern indicated by the patient in the upper abdominal area. FINDINGS: Ultrasound superior to the umbilicus the area of concern indicated by the patient demonstrates no sonographic abnormality. No focal mass or fluid collection is demonstrated. US/US abdomen limited IMPRESSION: No sonographic abnormality.
== END 2023-12-31 08:36 | disposition home or self-care (01) ==
LOC: HO.US 08:35
PROVIDERS: Visit Provider Internal Medicine
DX: R19.09 Other intra-abdominal and pelvic swelling, mass and lump (principal)
CPT/HCPCS: 76705

== ENCOUNTER 2024-04-06 14:38 | Outpatient (AMB) | payer OTHER, SELFPAY ==
[2024-04-06 14:50] VITALS: BP 111/89; PULSE 70; BMI 26.7
--- NOTE | 2024-04-06 14:50 | MHC.OFFVIS ---
Vital Signs 04/06/24 14:50 Height 5 ft 2 in Weight 146 lb BMI 26.7 BP 111/89 Blood Pressure Location Rt brachial Position Sitting Pulse 70 Intake Visit Reasons: Umbilical hernia Intake Note: This patient presents for an assessment for umbilical hernia. Patient c/o; reports bulge, reports pain. Casting Operator Required: No Accompanied by: Other Relationship Allergies tramadol Adverse Reaction (Intermediate, Verified 04/06/24 14:53) Chest Pain HPI Comments Details: Patient presents with her significant other and is approximately six-month status post laparoscopic appendectomy and umbilical hernia repair at an outside facility. She presents here because she has some discomfort at the umbilical site. She is concerned she has a recur hernia here. She has otherwise tolerating a diet, having regular bowel habits. No other GI issues or complaints. Activities are not limited Patient has also had liposuction in the past of the abdomen. She had an ultrasound of the area which demonstrated no umbilical hernia. [facility] Medical History Breast calcifications on mammogram MIGUEL (generalized anxiety disorder) Insomnia Mild recurrent major depression Skin lesion Right elbow pain Surgical History History of umbilical hernia History of appendectomy Lymphadenopathy Corneal transplant status H/O right breast biopsy Hx of colonoscopy History of cosmetic surgery History of bilateral tubal ligation History of keratoplasty History of vitrectomy Family History Father Prostate cancer Colon polyp Mother Hypertension Mental health disorder Colon polyp Skin cancer Daughter No problems noted. Father Prostate cancer Mother Hypertension Social History Housing: House Alcohol intake: never Patient Tobacco Use Status: Never used Tobacco e-Cigarette/Vaping Use: Never Used Second Hand Smoke Exposure: No service: No Current occupational status: unemployed Current occupation: Right Handed Cognitive needs: No Hearing needs: No Vision needs: Yes (Glasses) Female Reproductive History Menstrual Age of Menarche: 12 Physical Exam Vital Signs: Last Vital Signs Pulse 70 04/06/24 14:50 BP 111/89 04/06/24 14:50 BMI result Body Mass Index 26.7 GI Other: Patient was examined both supine and standing with Valsalva. Abdomen is soft. Laparoscopic appendectomy sites completely healed. No evidence of groin or umbilical hernia demonstrated. Assessment & Plan Assessment & Plan (1) Abdominal wall pain: Code(s): R10.9 - Unspecified abdominal pain Category: Surgical Plan Patient was reassured that at present there was no obvious hernia. This was also corroborated by an ultrasound of the area. At present, no surgical issues. Patient has been given local instructions, and will otherwise follow-up p.r.n.. All questions answered. Coding Level of Care Code Est Pt Level 4 (59617) Diagnoses Abdominal wall pain R10.9
== END 2024-04-06 15:02 | disposition home or self-care (01) ==
PROVIDERS: PCP Internal Medicine; Referring Provider Internal Medicine; Visit Provider Surgery
DX: R10.9 Unspecified abdominal pain (principal)
CPT/HCPCS: 99213

== ENCOUNTER → 2024-04-06 14:38 | Outpatient (BNVA) | payer OTHER, SELFPAY | PROVIDERS: PCP Internal Medicine; Referring Provider Internal Medicine; Visit Provider Surgery ==

== ENCOUNTER → 2024-07-30 12:45 | Outpatient (BNV) | payer OTHER, SELFPAY | PROVIDERS: PCP Internal Medicine; Visit Provider Internal Medicine | DX: Z12.31 Encounter for screening mammogram for malignant neoplasm of breast (principal) | CPT/HCPCS: 77063; 77067 ==

== ENCOUNTER 2024-07-30 12:58 | Outpatient (REF) | payer OTHER, SELFPAY ==
--- NOTE | ~2024-07-30 | MM_ITS ---
EXAMINATION: MM SCREENING DIGITAL BREAST TOMOSYNTHESIS, BILATERAL CLINICAL INFORMATION: Screening. Asymptomatic. COMPARISON: Mammography: Comparison is made with available priors TECHNIQUE: Digital breast mammography with tomosynthesis is performed in both the craniocaudal and mediolateral oblique views along with computer-aided detection (CAD). FINDINGS: The breasts are extremely dense, which lowers the sensitivity of mammography (ACR BI-RADS breast composition Category d). There are no significant masses, abnormal calcifications, or other abnormalities. MM/MM tomosynthesis screening BI IMPRESSION: No mammographic evidence of malignancy. ASSESSMENT: BI-RADS BI-RADS 1 - Negative RECOMMENDATION: Routine annual mammography screening. 1 year F/U This examination should not preclude the clinical evaluation of a suspicious palpable abnormality. This patient's information was entered into a reminder system with a target due date for their next mammogram. Electronically signed by: Jie Nelson DO 08/12/2024 09:42 PM EDT
== END 2024-07-30 12:59 | disposition home or self-care (01) ==
LOC: HO.MAMMO 12:58
PROVIDERS: PCP Internal Medicine; Visit Provider Internal Medicine
DX: Z12.31 Encounter for screening mammogram for malignant neoplasm of breast (principal)
CPT/HCPCS: 77063; 77067

== ENCOUNTER 2024-12-15 12:59 | Outpatient (AMB) | payer OTHER, SELFPAY ==
[2024-12-15 13:05] VITALS: BP 104/52; PULSE 68; O2SAT 98; BMI 26.3
--- NOTE | 2024-12-15 13:05 | A.OFFPC_ITS ---
Vital Signs 12/15/24 13:05 Height 5 ft 2 in Weight 144 lb BMI 26.3 BP 104/52 L Blood Pressure Location Lt brachial Position Sitting Pulse 68 Pulse Source Pulse Oximeter Pulse Oximetry (%) 98 Oxygen Delivery Method Room Air Intake Visit Reasons: pe Creative Strategist Required: No Accompanied by: Self / Same As Patient Allergies tramadol Adverse Reaction (Intermediate, Verified 12/15/24 13:22) Chest Pain Medication List - Last Reconciled 12/15/24 by Dinorah Hernandez MD brimonidine-timolol 0.2-0.5 % (Combigan) 1 drp ophthalmic (eye) BID bupropion HCl SR 100 mg PO BID dorzolamide 2% 1 drp ophthalmic (eye) BID escitalopram oxalate 20 mg PO DAILY Grab bar As directed [handheld shower As directed] lorazepam 1 mg PO DAILY PRN netarsudil-latanoprost 0.02-0.005 % (Rocklatan) 1 drp ophthalmic (eye) QPM prednisolone acetate 1% 1 drp ophthalmic (eye) BID Shower Chair with sides terbinafine HCl 250 mg PO DAILY 90 days trazodone 50 mg PO BEDTIME PRN Tobacco use date assessed: 12/15/24 Dental Screening Dental Screen Date: 12/15/24 Did you have a dental visit in the last 12 months?: Yes Did you have a dental problem in the last 6 months where you did not have access to dental care?: No Was dental information given to patient?: Patient has dentist HPI HPI Comments History of Present Illness Details The patient is a 49-year-old female presenting for an annual physical examination. She has a history of adenomatous colonic polyps from a colonoscopy in 2022, and a repeat is scheduled in 5 years. Her recent Pap smear (2020) was HPV negative, and mammogram was completed last July. She has not had a recent Tdap vaccination. She has mild major depressive disorder and anxiety, with ongoing psychiatric medication management. Ophthalmic history is significant for left eye keratoplasty and vitrectomy, with current issues related to a cloudy lesion in the eye. - Colonoscopy in 2022, follow-up in 5 ye ars due to adenomatous colonic polyps - Pap smear in 2020, HPV negative - Mammogram completed in 2023 - Tdap vaccination needed every 10 years , currently outstanding [facility] Medical History Breast calcifications on mammogram MIGUEL (generalized anxiety disorder) Insomnia Mild recurrent major depression Skin lesion Right elbow pain Surgical History History of umbilical hernia History of appendectomy Lymphadenopathy Corneal transplant status H/O right breast biopsy Hx of colonoscopy History of cosmetic surgery History of bilateral tubal ligation History of keratoplasty History of vitrectomy Family History Father Prostate cancer Colon polyp Mother Hypertension Mental health disorder Colon polyp Skin cancer Daughter No problems noted. Father Prostate cancer Mother Hypertension Social History Housing: House Alcohol intake: never Patient Tobacco Use Status: Never used Tobacco Tobacco use type: Cigarette e-Cigarette/Vaping Use: Never Used Second Hand Smoke Exposure: No service: No Current occupational status: unemployed Current occupation: Right Handed Cognitive needs: No Hearing needs: No Vision needs: Yes (Glasses) Female Reproductive History Menstrual Age of Menarche: 12 Questionnaire PHQ-9 Over the last 2 weeks, how often have you been bothered by any of the following problems? 1. Little interest or pleasure in doing things: several days 2. Feeling down, depressed, or hopeless: several days 3. Trouble falling or staying asleep, or sleeping too much: several days 4. Feeling tired or having little energy: several days 5. Poor appetite or overeating: several days 6. Feeling bad about yourself - or that you are a failure or have let yourself or your family down: several days 7. Trouble concentrating on things, such as reading the newspaper or watching television: several days 8. Moving or speaking so slowly that other people could have noticed. Or the opposite - being so fidgety or restless that you have been moving around a lot more than usual: several days 9. Thoughts that you would be better off or of hurting yourself in some way: not at all Total score: 8 Depression Screening Interpretation: Positive Depression Screening Follow-up: Existing condition, In treatment, Community Mental Health Worker F/U and Follow- up Visit Requested Depression Screening Done: Yes 63937 - PHQ-9 Billing: Yes Source: Developed by Drs. Jesus Isbell, Lolly Waters, Fernando Carter and colleagues, with an educational anel from [employer]. Thrive Questionnaire Date Thrive assessed: 12/15/24 I am a: Patient What is your living situation today?: I have a steady place to live Within the past 12 months, did the food you bought not last and you didn't have the money to get more?: Sometimes True Within the past 12 months, did you worry whether your food would run out before you got money to buy more?: Sometimes True Do you have trouble paying for medicines?: No Do you have trouble getting transportation to medical appointments?: No Do you have trouble paying your heating and electricity bill?: Yes Do you have trouble taking care of your child, family member or friend?: No Do you have trouble with day-to-day activities such as bathing, preparing meals, shopping, managing finances, etc.?: No Are you currently unemployed and looking for a job?: No Are you interested in more education?: No Please select the resources that you would like help with: None Currently or been in a relationship where the following occur: I choose not to answer THRIVE Score: 3 AUDIT C Alcohol Use Questionnaire (AUDIT-C) 1. How often do you have a drink containing alcohol?: Never Total Score: 0 Score Reviewed/Action Taken: No MIGUEL-7 AMB Questionnaire MIGUEL-7 Date MIGUEL - 7 assessed: 12/15/24 Feeling nervous, anxious, or on edge: 1 = Several days Not being able to stop or control worryin = Several days Worrying too much about different things: 1 = Several days Trouble relaxin = Several days Being so restless that it is hard to sit still: 0 = Not at all Becoming easily annoyed or irritable: 1 = Several days Feeling afraid as if something awful might happen: 1 = Several days Total MIGUEL-7 score (0-4 normal; 5-9 mild; 10-14 moderate; 15-21 severe): 6 Source: Developed by Drs. Jesus Isbell, Fernando Baptiste and colleagues, with an educational anel from [employer]. MIGUEL-7 Assessment Billing MIGUEL-7 Assessment Tool: MIGUEL-7 Assessment 11889 Review of Systems Const All systems reviewed & are unremarkable except as noted in HPI and below ENT Denies change in voice, Denies nasal discharge and Denies sinus pain Card Denies chest pain at rest, Denies chest pain with activity, Denies edema, Denies irregular heart rhythm, Denies claudication, Denies dyspnea, Denies dyspnea on exertion, Denies orthopnea, Denies paroxysmal nocturnal dyspnea and Denies slow heart rate Resp Denies cough, Denies dyspnea and Denies dyspnea on exertion GI Denies abdominal pain, Denies change in bowel habits, Denies excessive flatus, Denies nausea and Denies vomiting Denies urinary incontinence, Denies urinary hesitancy and Denies urinary urgency Musc Denies atrophy, Denies deformity and Denies limited range of motion Skin/Breast Denies bleeding lesions, Denies changing lesions and Denies rash Physical exam (Primary Care) Vital Signs: Last Vital Signs Pulse 68 12/15/24 13:05 BP 104/52 L 12/15/24 13:05 Pulse Ox 98 12/15/24 13:05 Oxygen Delivery Method Room Air 12/15/24 13:05 BMI result Body Mass Index 26.3 Tobacco/Smoking Status: Tobacco use Status Tobacco use date assessed 12/15/24 12/15/24 13:06 Patient Tobacco Use Status Never used Tobacco 12/15/24 13:06 Tobacco use type Cigarette 12/15/24 13:06 e-Cigarette/Vaping Use Never Used 12/15/24 13:06 PHQ-9: PHQ-9 Score PHQ-9: Total score 8 12/15/24 13:42 Depression Screening Interpretation: Positive Depression Screening Follow-up: Existing condition, In treatment, Community Mental Health Worker F/U and Follow- up Visit Requested Thrive Assessment: Date of Thrive Assessment Date Thrive assessed 12/15/24 12/15/24 13:06 Currently or been in a relationship where the following occur: I choose not to answer HENMT Head: Yes normal to inspection, Yes normocephalic and Yes atraumatic Ears: external ears normal Eyes General: appearance normal, both eyes and all related structures Eyelids: Yes eyelids normal Conjunctivae: conjunctivae normal Neck Neck: Yes normal visual inspection and Yes supple Resp Effort & Inspection: normal respiratory effort Auscultation: clear to auscultation bilaterally Cardio Jugular venous distension: no JVD Rate: regular rate Rhythm: regular rhythm Heart sounds: S1 normal heart sound present and S2 normal heart sound present GI Inspection: Yes normal to inspection Palpation (GI): Soft to palpation and nontender Auscultation: normal bowel sounds Skin General skin exam: no rashes or lesions noted Neuro General: no focal motor deficits Extrem General: Yes full ROM Psych Appearance: grossly normal Immunizations Boostrix Tdap 2.5 Lf unit-8 mcg-5 Lf/0.5 mL intramuscular syringe Performing Provider: Dinorah Hernandez MD [facility] Administered by: Gaby Jaeger CMA on 12/15/24 13:42 Dose Route Admin Location Dispensed Lot Number Expiration Date NDC Pile Driving Supervisor 0.5 mL IM Left Deltoid 0.5 mL [id number] 02/05/27 84781-012-86 [employer] VIS Given Date VIS Provided VIS Publication Date 12/15/24 Single Vaccine 21 Eligibility Eligibility Date Funding Source Not [facility] Eligible 12/15/24 Private Coding Level of Care Code Est Pt Prev Care 40-64y(57910) Diagnoses Physical exam Z00.00 Mild recurrent major depression F33.0 Additional Codes MIGUEL-7 Assessment Billing - MIGUEL-7 Assessment Tool: MIGUEL-7 Assessment 16891 ([id number]) PHQ-9 - 44043 - PHQ-9 Billing: Yes ([id number]) Time Spent (min) 31 Assessment & Plan Assessment & Plan (1) Physical exam: Code(s): Z00.00 - Encounter for general adult medical examination without abnormal findings Category: Medical (2) Mild recurrent major depression: Code(s): F33.0 - Major depressive disorder, recurrent, mild Category: Medical Plan The patient will receive an updated Tdap vaccination that is currently due. Continuation of the eye treatment regimen for the left eye will proceed, with a progress check scheduled in three weeks. Psychiatric treatment for mild major depressive disorder and anxiety is ongoing with Bupropion, Escitalopram, and Trazodone. Routine lab test assessments will be conducted due to their overdue status. Patient was informed and verbally consented to the use of an ambient scribe for clinic note documentation during this visit. I discussed the necessity of updating the patient's Tdap vaccination, especially since it's overdue every 10 years. We reviewed her left eye condition, with re commendations to continue the treatment regimen and to evaluate progress after three weeks. We also discussed her mild major depressive disorder and how her current psychiatric medication is being effectively managed. Routine lab testing will be conducted to assess cholesterol, blood sugar, renal, and liver function due to the time lapse since last checked. We considered specialist consultation for her left eye complication if there is no improvement. Orders: Orders Lipid Panel Today Z00.00 - Encounter for general adult medical examination without abnormal findings Comprehensive Gypsum. Panel Fast Today Z00.00 - Encounter for general adult medical examination without abnormal findings TDaP Immunization Today Z23 - Encounter for immunization Patient Instructions: - Please schedule and receive your Tdap vaccination as soon as possible. - Follow prescribed eyecare regimen and return for follow-up in three weeks. - Continue taking Bupropion, Escitalopram, and Trazodone as prescribed. - Schedule and complete the overdue laboratory tests for cholesterol, blood sugar, kidney function, and liver function. - Return for a full assessment if symptoms related to your left eye worsen.
--- OUTSIDE RECORDS SUMMARY | 2024-12-15 15:54 | XMS_ITS | Clinical Summary ---
Author Organization [employer] [facility] it Address [address] [place] [address] Care Team Providers Care Wood Heel Finisher Name Role Phone Dinorah Hernandez MD Primary Care Provider [phone] Surgical History Surgery Date Site/Laterality Comments EYE SURGERY PROCEDURE: HISTORICAL EYE SURGERY OTHER SURGICAL HISTORY PROCEDURE: HISTORY OTHER; COMMENT: liposuction Medical History Medical History Date Comments Anxiety and depression DX:Anxiet y and depression Social History Tobacco Use Types Packs/Day Years Used Date Smoking Tobacco: Never Assessed Comments Unknown Sex and Gender Information Value Date Recorded Sex Assigned at Not on file Legal Sex Female 9:54 PM EST Gender Identity Not on file Sexual Orientation Not on file Obstetrics History Last Filed Vital Signs Vital Sign Reading Time Taken Comments Blood Pressure 100/57 11/07/2023 8:39 AM EST Pulse 74 11/07/2023 8:39 AM EST Temperature - - Respiratory Rate - - Oxygen Saturation - - Inhaled Oxygen Concentration - - Weight 63.5 kg (140 lb) 11/07/2023 8:39 AM EST Height - - Body Mass Index - - Plan of Treatment Health Maintenance Due Date Last Done Comments Breast Cancer Screening 1973 DTaP,Tdap,and Td Vaccines (1 - Tdap) 1992 Hepatitis B Vaccines (1 of 3 - 19+ 3-dose series) 1992 Cervical Cancer Screening: P ap Smear 1994 Pneumococcal Vaccine: 50+ Ye ars (1 of 1 - PCV) 2023 Zoster Vaccines (1 of 2) 2023 Colorectal Cancer Screening: Colonoscopy 11/18/2023 Depression Screening 11/18/2023 HIV Screening 11/18/2023 Hepatitis C Screening 11/18/2023 Social Influencers of Health Screening 11/18/2023 COVID-19 Vaccine ( - 2023-2 5 season) 2024 Influenza Vaccine (#1) 2024 HIB Vaccines Aged Out No longer eligi ble based on patient's age to complete this topic HPV Vaccines Aged Out No longer eligi ble based on patient's age to complete this topic Hepatitis A Vaccines Aged Out No long er eligible based on patient's age to complete this topic IPV Vaccines Aged Out No longer eligi ble based on patient's age to complete this topic MMR Vaccines Aged Out No longer eligi ble based on patient's age to complete this topic Meningococcal ACWY Vaccine Aged Out N o longer eligible based on patient's age to complete this topic Meningococcal B Vacine Aged Out No lo nger eligible based on patient's age to complete this topic Pneumococcal Vaccine: Pediat rics (0 to 5 Years) and At-Risk Patients (6 to 64 Years) Aged Out No longer eligible b ased on patient's age to complete this topic RSV Immunization Patients Un stephen 20 months Aged Out No longer eligible b ased on patient's age to complete this topic Varicella Vaccines Aged Out No longer eligible based on patient's age to complete this topic Care Teams Wood Heel Finisher Relationship Specialty Start Date End Date Dinorah Hernandez MD [address] [place] [address] , [address] [facility] D/B/A: Tanya Alvarezatieugen[facility] In Internal Medicine LISA Martínez PCP - General 10/06/23
== END 2024-12-15 13:48 | disposition home or self-care (01) ==
PROVIDERS: PCP Internal Medicine; Visit Provider Internal Medicine
DX: Z00.00 Encounter for general adult medical examination without abnormal findings (principal); F33.0 Major depressive disorder, recurrent, mild; Z23 Encounter for immunization

== ENCOUNTER → 2024-12-15 12:59 | Outpatient (BNVA) | payer OTHER, SELFPAY | PROVIDERS: PCP Internal Medicine; Visit Provider Internal Medicine | DX: Z00.00 Encounter for general adult medical examination without abnormal findings (principal); Z23 Encounter for immunization; F33.0 Major depressive disorder, recurrent, mild | CPT/HCPCS: 90471; 90715; 96127 ==

== ENCOUNTER 2024-12-21 11:25 | Outpatient (REF) | payer OTHER, SELFPAY ==
[2024-12-21 13:07] LABS: Alanine Aminotransferase 32 U/L (0-31); Albumin Level 4.1 g/dL (3.5-5.0); Alkaline Phosphatase 84 U/L (39-117); Anion Gap 10 (12-20); Aspartate Amino Transferase 28 U/L (5-31); Bilirubin Total 0.3 mg/dL (0.0-1.0); Blood Urea Nitrogen 9 mg/dL (9-16); Calcium 8.7 mg/dL (8.4-10.2); Carbon Dioxide 26 mmol/L (22-29); Chloride 108 mmol/L (96-108); Cholesterol 208 mg/dL (<200); Estimated Glomerular Filt Rate > 60; Glucose Fasting 96 mg/dL (60-99); HDL Cholesterol 56 mg/dL (>40); LDL Cholesterol Calculated 138 mg/dL (<100); Potassium 4.2 mmol/L (3.3-5.1); Sodium 140 mmol/L (135-145); Total Protein 7.8 g/dL (6.5-8.0); Triglycerides 71 mg/dL (<150)
--- OUTSIDE RECORDS SUMMARY | 2024-12-21 14:27 | XMS_ITS | Clinical Summary ---
Author Organization [facility] [facility] it Address [address] [place] [address] Care Team Providers Care Sales Representative Gas Service Name Role Phone Dinorah Hernandez MD Primary Care Provider [phone] Surgical History Surgery Date Site/Laterality Comments EYE [...] age to complete this topic Care Teams Sales Representative Gas Service Relationship Specialty Start Date End Date Dinorah Hernandez MD [address] [place] [address] , [address] [facility] D/B/A: Tanya Alvarezatieugen[facility] In Internal Medicine LISA Martínez PCP - General 10/06/23
== END 2024-12-21 11:26 | disposition home or self-care (01) ==
LOC: HO.LAB 11:25
PROVIDERS: PCP Internal Medicine; Visit Provider Internal Medicine
DX: Z00.00 Encounter for general adult medical examination without abnormal findings (principal); Z13.220 Encounter for screening for lipoid disorders
CPT/HCPCS: 36415; 80053; 80061

== ENCOUNTER 2025-08-05 12:44 | Outpatient (REF) | payer OTHER, SELFPAY ==
--- NOTE | ~2025-08-05 | MM_ITS ---
EXAMINATION: MM SCREENING DIGITAL BREAST TOMOSYNTHESIS, BILATERAL CLINICAL INFORMATION: Screening. Asymptomatic. COMPARISON: Mammography: Comparison is made with available priors TECHNIQUE: Digital breast mammography with tomosynthesis is performed in both the craniocaudal and mediolateral oblique views along with computer-aided detection (CAD). FINDINGS: The breasts are extremely dense, which lowers the sensitivity of mammography. There are no significant masses, abnormal calcifications, or other abnormalities. MM/MM tomosynthesis screening BI IMPRESSION: No mammographic evidence of malignancy. ASSESSMENT: BI-RADS Category 1: Negative RECOMMENDATION: Routine annual mammography screening. 1 year F/U This examination should not preclude the clinical evaluation of a suspicious palpable abnormality. This patient's information was entered into a reminder system with a target due date for their next mammogram. Electronically signed by: Jie Nelson DO 08/08/2025 05:28 PM EDT
--- OUTSIDE RECORDS SUMMARY | 2025-08-05 15:05 | XMS_ITS | Clinical Summary ---
Author Organization [email or web address] it Address [address] [place] [address] Care Team Providers Care Pastry Finisher Name Role Phone Dinorah Hernandez MD Primary Care Provider [phone] Surgical History Surgery Date Site/Laterality Comments EYE [...] Last Done Comments Breast Cancer Screening 1973 Colorectal Cancer Screening: Colonoscopy 1973 DTaP,Tdap,and Td Vaccines (1 - Tdap) 1992 Hepatitis B Vaccines (1 of 3 - 19+ 3-dose series) 1992 Cervical Cancer Screening: P ap Smear 1994 Pneumococcal Vaccine: 50+ Ye ars (1 of 1 - PCV) 2023 Zoster Vaccines (1 of 2) 2023 HIV Screening 11/18/2023 Hepatitis C Screening 11/18/2023 Social Influencers of Health Screening 11/18/2023 Depression Screening 10/20/2024 COVID-19 Vaccine (1 - 2023-2 5 season) 2025 Influenza Vaccine (#1) 2025 RSV Immunization Adult Patie nts (1 - 1-dose 75+ series) 2048 HIB Vaccines Aged Out No longer eligi [...] age to complete this topic Meningococcal B Vaccine Aged Out No l onger eligible based on patient's age to complete this topic RSV Immunization Patients Un stephen 20 months Aged Out No longer eligible b ased on patient's age to complete this topic Varicella Vaccines Aged Out No longer eligible based on patient's age to complete this topic Care Teams Pastry Finisher Relationship Specialty Start Date End Date Dinorah Hernandez MD [address] [place] [address] , [address] Physician Associ D/B/A: [facility] LISA Martínez PCP - General 10/06/23
== END 2025-08-05 12:45 | disposition home or self-care (01) ==
LOC: HO.MAMMO 12:44
PROVIDERS: PCP Internal Medicine; Visit Provider Internal Medicine
DX: Z12.31 Encounter for screening mammogram for malignant neoplasm of breast (principal)
CPT/HCPCS: 77063; 77067

== ENCOUNTER → 2025-08-05 13:15 | Outpatient (BNV) | payer OTHER, SELFPAY | PROVIDERS: PCP Internal Medicine; Visit Provider Internal Medicine | DX: Z12.31 Encounter for screening mammogram for malignant neoplasm of breast (principal) | CPT/HCPCS: 77063; 77067 ==